=== PATIENT | female | born 1930 | race Caucasian/White ===

== ENCOUNTER 2016-03-28 10:38 | Emergency (ER) | payer MEDICARE, OTHER ==
[2016-03-28] MEDS ORDERED: DIPH,PERTUSS(ACELL),TET VAC/PF 0.5 ML DISP.SYRIN IM ONE (10:44)
--- NOTE | 2016-03-28 11:01 | ED Physician Documentation ---
Facial/Scalp Injury - HISTORIAN Historian: patient - HPI Stated Complaint: ran into wall Chief Complaint: Facial Injury Additional Information: no loc, no vertigo, no syncope Onset: just prior to arrival Where: home Timing: still present Context: fall Severity: moderate Further Comments: no - ROS CONST: no problems CVS/RESP: none EYES/ENT: none GI/: none NEURO/PSYCH: denies: fainting, dizziness, tingling, numbness, anxiety, depression MS/SKIN/LYMPH: none - PAST HX Past History: other (hypothyroidis, gout, gerd) Immunizations: tetanus Medications: see nurse note Allergies: see nurses note - SOCIAL HX Smoking History: non-smoker Alcohol Use: none Drug Use: none - FAMILY HX Family History: No - VITAL SIGNS Vital Signs: Vital Signs Temp Pulse Resp BP Pulse Ox 112/60 04/01/14 18:00 - REVIEWED ASSESSMENT Nursing Assessment Reviewed: Yes Vitals Reviewed: Yes Procedures Wound Location: face Wound Length: 1/2 cm x 2 Wound's Depth, Shape: superficial, linear Wound Explored: clean Betadine Prep?: No (sureclens) Wound Repaired With: Dermabond Sterile Dressing Applied?: No Splint Applied?: No Sling Applied?: No Progress - Results/Orders Results/Orders: no testing ordered - Progress Progress: pt. given adacel in er. Critical Care Note - Critical Care Note Total Time (mins): 0 ED Results Lab/Radiology - Lab Results Lab Results: none ordered - Radiology Radiology Impressions: none ordered - Orders Orders: ED Orders Category Date Time Status Skin Adhesive NOW Care 03/28/16 10:45 Ordered Diph,Pertuss(Acell),Tet Vac/Pf [Adacel] Med 03/28/16 10:44 Discontinued 0.5 ml IM .STK-MED ONE Facial Injury Physical Exam - Physical Exam General Appearance: alert, mild distress Head: trauma (bruise infraorbital region, 2 minor laceration right eyebrow area) Neck: non-tender, painless ROM, trachea midline Nexus Criteria: Nexus criteria neg Eye: lids nml, conjunctivae nml, PERRL, EOMI, periorbital hematoma (right) ENT: pharynx nml, no injury to teeth, no injury to gums, other (abrasion upper lip (minor)) Neuro/Psych: oriented x3, CN's nml as tested, sensation nml, motor nml, mood/ affect nml, retort feeder ground bone nml, reflexes nml Respiratory: chest non-tender, no ecchymosis, breath sounds nml, no resp. distress, heart sounds nml CVS: reg. rate & rhythm, heart sounds nml Abdomen: non-tender, no organomegaly Skin: other (1/2 cm minor lacerations x 2 right eyebrow area) Extremities: non-tender Discharge Clincal Impression: Laceration of face Referrals: Jennifer Lee, PRN [Primary Care Provider] - 2 Days Home Medications: Ambulatory Orders Allopurinol [Zyloprim] 300 mg PO D 05/02/13 Antiarthritic Combination No.2 [Glucosamine-Chondroitin] 500 mg PO D 05/02/13 Gabapentin [Neurontin] 300 mg PO TID 05/02/13 Levothyroxine Sodium [Synthroid] 88 mg PO D 05/02/13 Omeprazole [Omeprazole] 20 mg PO D 05/02/13 Opti-Vitamin [Ocuvite Tablet] 1 tab PO D 05/02/13 Raloxifene HCl [Evista] 60 mg PO D 05/02/13 Sitagliptin Phosphate [Januvia] 100 mg PO D 05/02/13 Alprazolam [Alprazolam] 0.25 mg PO TID PRN 03/29/14 Aspirin [Mary] 81 mg PO DAILY 03/29/14 Metformin HCl [Glucophage] 500 mg PO HS 03/29/14 Zolpidem Tartrate [Ambien] 5 mg PO QDAY PRN 03/29/14 Condition: Stable Disposition: 01 HOME, SELF-CARE Decision to Admit: NO Decision Time: 15:00
[2016-03-28 11:16] VITALS: BP 160/66
== END 2016-03-28 11:10 | disposition home or self-care (01) ==
LOC: ED 10:38
DX: S01.81XA Laceration without foreign body of other part of head, initial encounter (principal); W19.XXXA Unspecified fall, initial encounter; Y93.9 Activity, unspecified; Y99.9 Unspecified external cause status
CPT/HCPCS: 12011; 90471; 90715; 99283

== ENCOUNTER 2016-04-24 09:00 | Outpatient (CLI) | payer OTHER | END 2016-04-24 09:10 | LOC: POD 09:00 | PROVIDERS: ATTEND Podiatrist Public Medicine | DX: E11.9 Type 2 diabetes mellitus without complications (principal); B35.1 Tinea unguium; L60.0 Ingrowing nail; M79.674 Pain in right toe(s); M79.675 Pain in left toe(s) | CPT/HCPCS: 11721; G0463 ==

== ENCOUNTER 2016-06-03 14:18 | Inpatient (IN) | payer OTHER ==
--- NOTE | 2016-06-03 18:31 | History and Physical Report ---
History of Present Illnes - History of Present Illness Reason for Visit: distal femur fracture with gait disturbance History of Present Illness: 85yo white female who fell and sustained a distal femur fracture 9 days ago. Underwent emergency stabilization and then underwent ORIF of the fracture. Has not had any intraoperative or postoperative complication. Has been advised that she could put 25% weight bearing to the foot. Patient has a history of DM, has been running high. Last A1c 6.3. History of lymphome in remission. Gerds is stable. - Past Medical History Gastrointestinal: GERD Heme/Onc: Other (lymphoma treated and in remission) Musculoskeletal: Osteoarthritis Endocrine: Diabetes, Hypothyroidism, Other (hyperuricemia) - Past Surgical History Past Surgical History: Appendectomy, Cataract Removal, Hysterectomy, Total Knee Replacement (has had revision), Tonsillectomy - Past Family History Mother Family History: (85yo advanced age) Father Family History: CAD, (72yo) Brother 1 Family History: Cancer (lymphoma), (cancer) Brother 2 Family History: Cancer (colon), Brother 3 Family History: Cancer (brain), Brother 4 Family History: (advanced age) Brother 5 Family History: (2016) - Past Social History Smoke: No Alcohol: None Drugs: None Lives: With Family Domestic Violence: Negative - Health Maintenance Health Maintenance: Mammogram, DEXA (2017) Influenza Vaccine: Current for this Influenza Season, 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 negative: Fever, Chills, Sweats Eyes: negative: pain, vision change ENT: negative: Ear Pain, Ear Discharge, Nose Pain, Nose Discharge, Mouth Pain, Mouth Swelling, Throat Pain, Throat Swelling Respiratory: negative: Cough, Dry, Shortness of Breath, Hemoptysis, SOB with Excertion, Pleuritic Pain, Wheezing Cardiovascular: negative: Chest Pain, Palpitations, Edema, Light Headedness Gastrointestinal: negative: Nausea, Vomiting, Abdominal Pain, Diarrhea, Constipation, Melena, Hematochezia Genitourinary: negative: Dysuria, Frequency, Incontinence, Hematuria Musculoskeletal: Leg Pain. negative: Neck Pain, Shoulder Pain, Arm Pain, Back Pain Skin: negative: Rash, Lesions, Jaundice Neurological: negative: Weakness, Numbness, Confusion, Seizures - Medications/Allergies Allergies/Adverse Reactions: Allergies Allergy/AdvReac Type Severity Reaction Status Date / Time acyclovir Allergy Verified 06/04/16 07:03 amoxicillin [Amoxicillin] Allergy Verified 06/04/16 07:03 brimonidine tartrate Allergy Verified 06/04/16 07:03 [From Combigan] chlorpheniramine maleate Allergy Verified 06/04/16 07:03 [From Deconamine] ciprofloxacin [From Cipro] Allergy Verified 06/04/16 07:03 ciprofloxacin HCl Allergy Verified 06/04/16 07:03 [From Cipro] cyclobenzaprine HCl Allergy Verified 06/04/16 07:03 [From Flexeril] dicyclomine Allergy Verified 06/04/16 07:03 glimepiride [From Amaryl] Allergy Verified 06/04/16 07:03 metoclopramide HCl Allergy Verified 06/04/16 07:03 [From Reglan] Penicillins Allergy Verified 06/04/16 07:03 pregabalin [From Lyrica] Allergy Verified 06/04/16 07:03 prochlorperazine edisylate Allergy Verified 06/04/16 07:03 [From Compazine] prochlorperazine maleate Allergy Verified 06/04/16 07:03 [From Compazine] pseudoephedrine HCl Allergy Verified 06/04/16 07:03 [From Deconamine] thiethylperazine maleate Allergy Verified 06/04/16 07:03 [From Torecan] timolol maleate Allergy Verified 06/04/16 07:03 [From Combigan] Home Medications: Home Medications Allopurinol [Zyloprim] 300 mg PO D 06/04/16 Calcium Carb 500/Vit D 200 [Caltrate with Vit D] 1 each PO TID 06/04/16 Calcium Carb 500Mg [Tums] 1,000 mg PO DAILY PRN 06/04/16 Enoxaparin Sodium [Lovenox] 40 mg SQ QD 06/04/16 Ergocalciferol (Vitamin D2) [Vitamin D2] 50,000 unit PO WEEK 06/04/16 Gabapentin 600 mg PO TID 06/04/16 Levothyroxine Sodium [Levoxyl] 88 mcg PO 0700 06/04/16 Metformin HCl [Glucophage] 1,000 [place] [address] 06/04/16 Mv-Mn/FA/Vit K/Lycop/Lut/Zeaxa [Ocuvite Eye + Multi Tablet] 1 each PO D Omeprazole [Prilosec] 40 mg PO D 06/04/16 Raloxifene HCl 60 mg PO D 06/04/16 Sennosides/Docusate Sodium [Senna-Docusate Sodium Tablet] 2 each PO HS PRN 06/04 oxyCODONE HCL/ACETAMINOPHEN [Percocet 5-325 mg Tablet] 2 each PO Q4 PRN Current Inpatient Medications: Current Inpatient Medications Aspirin (Aspirin) 81 mg PO DAILY [facility] Enoxaparin Sodium (Lovenox) 30 mg SQ QD [place] Stop: 06/16/16 19:01 Gabapentin (Neurontin) 300 mg PO TID [place] Metformin HCl (Glucophage) 500 mg PO HS [facility] Zolpidem Tartrate (Ambien) 5 mg PO QDAY PRN PRN Reason: anxiety Exam - Exam General: Alert, Oriented to Person, Oriented to Place, Oriented to Time, Cooperative, Mild distress HEENT: Atraumatic, PERRLA, EOMI, Mouth Mucous membr. moist/[place], Nose Mucous membr. moist/[place], Dentition Normal. No: Decreased Hearing Acuity Neck: Normal Range of Motion Carotids: WNL Thyroid: WNL Lungs: Clear to auscultation, Normal air movement, Speaks full Sentences Cardiovascular: Regular rate, Normal S1, Normal S2, No murmurs Abdomen: Normal bowel sounds, Soft, No tenderness, No hepatospenomegaly, No masses Integumentary: Normal, [place], Warm, Dry Extremities: No clubbing, No cyanosis, No edema, Normal pulses, No tenderness/ swelling, Other (well healing surgical wounds to the right leg. Mild to moderate swelling noted.) Neurological: Normal gait, Normal speech, Strength Equal Bilat, Normal tone, Sensation intact, Cranial nerves 3-12 NL, Reflexes 2+ Psych/Mental Status: Mental status NL, Mood NL, Appropriate Affect, Intact Judgment Assessment/Plan - Assessment/Plan (1) Fracture, femur, distal, open Status: Acute Current Visit: Yes Qualifiers: Open fracture type: open type I or II Laterality: right Fracture healing : with routine healing Assessment: Patient will be continued with partial weight bearing of 25% with brace, will star OT and PT. (2) Diabetes type 2, controlled Status: Chronic Current Visit: Yes Qualifiers: Diabetes mellitus complication status: without complication Diabetes mellitus usp insulin use: without usp use Qualified Code(s): E11.9 - Type 2 diabetes mellitus without complications Assessment: Continue with home meds, start sliding scale insulin while hospitalized. Monitor blood sugars. (3) Hyperuricemia Status: Chronic Current Visit: Yes Assessment: Will watch for signs of gout, continue allopurinal VTE Assessment - RISK FACTOR SCORE VTE RISK FACTOR SCORES: AGE OVER 60 YEARS, ANTICIPATED BED CONFINEMENT OR IMMOBILIZATION > 24 HOURS - RISK VTE MODERATE RISK: SCORE OF 2 (RISK PROXIMAL DVT 2-4%) PROPHYAXIS NEEDED
[2016-06-03] MEDS: ENOXAPARIN SODIUM 30 MG/0.3 ML DISP.SYRIN SQ SCH (20:00)
[2016-06-03 20:40] VITALS: BMI 20.8
[2016-06-03] MEDS: ZOLPIDEM TARTRATE 5 MG TABLET PO PRN (21:39)
[2016-06-03] MEDS: GABAPENTIN 300 MG CAPSULE PO SCH (21:40)
[2016-06-03] MEDS: ALPRAZOLAM 0.5 MG TABLET PO PRN (22:38)
[2016-06-04] MEDS: PANTOPRAZOLE SODIUM 40 MG TABLET PO SCH (06:18)
[2016-06-04] MEDS: LEVOTHYROXINE SODIUM 25 MCG TABLET PO SCH (06:18)
[2016-06-04] MEDS: INSULIN REGULAR, HUMAN 100 UNIT/ML 3ML VIAL SQ SCH ×4 (07:16→20:07)
[2016-06-04] MEDS: GABAPENTIN 300 MG CAPSULE PO SCH ×3 (09:05→17:52)
[2016-06-04] MEDS: MULTIVITAMIN 1 EACH TABLET PO SCH (09:05)
[2016-06-04] MEDS: CALCIUM CARB 500/VIT D 200 1 EACH TABLET PO SCH ×3 (09:05→17:52)
[2016-06-04] MEDS: ASPIRIN 81 MG CHEW TAB PO SCH (09:05)
[2016-06-04] MEDS: ALLOPURINOL 100 MG TABLET PO SCH (09:05)
[2016-06-04] MEDS: ACETAMINOPHEN 500 MG TABLET PO PRN ×2 (14:04→20:09)
[2016-06-04] MEDS: ENOXAPARIN SODIUM 30 MG/0.3 ML DISP.SYRIN SQ SCH (18:23)
[2016-06-04] MEDS: ALPRAZOLAM 0.5 MG TABLET PO PRN (20:57)
[2016-06-04] MEDS: ZOLPIDEM TARTRATE 5 MG TABLET PO PRN (20:58)
[2016-06-05] MEDS ORDERED: GABAPENTIN 100 MG CAPSULE ONE ×2 (03:29→09:43)
[2016-06-05] MEDS: LEVOTHYROXINE SODIUM 25 MCG TABLET PO SCH (06:16)
[2016-06-05] MEDS: PANTOPRAZOLE SODIUM 40 MG TABLET PO SCH (06:16)
[2016-06-05 06:30] LABS: BASOPHILS % 0.5 (0.0-1.5); EOSINOPHILS % 2.4 % (0.0-6.8); MEAN CORPUSCULAR HEMOGLOBIN 29.8 pg (28.0-34.0); MEAN CORPUSCULAR VOLUME 97.3 fl (80.0-100.0); MONOCYTES % 4.8 % (0.0-11.0)
[2016-06-05 06:47] LABS: eGFR (African) > 60; eGFR (Non-African) > 60
--- NOTE | 2016-06-05 07:38 | Inpatient Progress Note ---
Subjective - Required Recertification Statement I anticipate X number of days because-include discharge plan: 14 - Review of Systems Events since last encounter: Patient states that she is doing well. Is having little pain at this time. Does complain of some neuropathy pain, usually takes gabapentin 600mg TID. BM have been ok. Therapy is going well. Feels weak all over. BS have been running high. Objective - Exam Vitals and I&O: Vital Signs Temp 97.0 F L 06/04/16 20:44 Pulse 94 H 06/04/16 20:44 Resp 22 06/04/16 20:44 BP 104/59 06/04/16 20:44 Pulse Ox 98 06/04/16 20:44 Intake & Output 06/04/16 06/04/16 06/05/16 11:59 23:59 11:59 Intake Total 360 120 Balance 360 120 Intake: Oral 360 120 Other: Voiding Method Bedside Commode Bedside Commode # Voids 2 4 2 # Bowel Movements 1 General: Alert, Oriented to Person, Oriented to Place, Oriented to Time, Cooperative Neck: Supple Lungs: Clear to auscultation, Normal air movement, Speaks full Sentences Cardiovascular: Regular rate, Normal S1, Normal S2, No murmurs Skin: Normal, [place], Warm Psych/Mental Status: Mood NL, Intact Judgment - Results Results: Laboratory Results WBC 6.10 K/ul (4.00-12.00) 06/05/16 06:20 RBC 3.31 M/ul (3.90-5.20) L 06/05/16 06:20 Hgb 9.9 g/dL (12.0-16.0) L 06/05/16 06:20 Hct 32.2 % (34.5-46.5) L 06/05/16 06:20 MCV 97.3 fl (80.0-100.0) 06/05/16 06:20 MCH 29.8 pg (28.0-34.0) 06/05/16 06:20 MCHC 30.7 g/dL (30.0-36.0) 06/05/16 06:20 RDW 15.9 % (11.3-14.3) H 06/05/16 06:20 Plt Count 358 K/mm3 (130-400) 06/05/16 06:20 Neut % (Auto) 64.9 % (39.0-79.0) 06/05/16 06:20 Lymph % (Auto) 25.8 % (16.0-50.0) 06/05/16 06:20 [place] % (Auto) 4.8 % (0.0-11.0) 06/05/16 06:20 Eos % (Auto) 2.4 % (0.0-6.8) 06/05/16 06:20 Baso % (Auto) 0.5 (0.0-1.5) 06/05/16 06:20 Neut # 4.0 # k/uL (1.4-7.7) 06/05/16 06:20 Lymph # 1.6 # k/uL (0.6-4.0) 06/05/16 06:20 [place] # 0.3 # k/uL (0.0-0.9) 06/05/16 06:20 Eos # 0.1 # k/uL (0.0-0.6) 06/05/16 06:20 Baso # 0.0 # k/uL (0.0-0.5) 06/05/16 06:20 Reactive Lymphs % 1.7 % (0.0-5.0) 06/05/16 06:20 Reactive Lymphs # 0.1 # k/uL (0.0-0.8) 06/05/16 06:20 Sodium 138 mmol/L (136-145) 06/05/16 06:20 Potassium 4.0 mmol/L (3.5-5.0) 06/05/16 06:20 Chloride 108 mmol/L (98-110) 06/05/16 06:20 Carbon Dioxide 28 mmol/L (20-32) 06/05/16 06:20 BUN 14 mg/dL (10-26) 06/05/16 06:20 Creatinine 0.7 mg/dL (0.4-1.5) 06/05/16 06:20 Estimated Creat Clear 61 06/05/16 06:20 Est GFR ( Amer) > 60 (60-) 06/05/16 06:20 Est GFR (Non-Af Amer) > 60 (60-) 06/05/16 06:20 Glucose 203 mg/dL (70-99) H 06/05/16 06:20 Calcium 9.3 mg/dL (8.5-10.5) 06/05/16 06:20 Total Bilirubin 0.4 mg/dL (0.2-1.2) 06/05/16 06:20 AST 15 U/L (0-41) 06/05/16 06:20 ALT 8 U/L (0-45) 06/05/16 06:20 Alkaline Phosphatase 78 U/L (46-116) 06/05/16 06:20 Total Protein 5.9 g/dL (6.0-8.5) L 06/05/16 06:20 Albumin 3.4 g/dL (3.0-5.5) 06/05/16 06:20 Assessment/Plan - Assessment/Plan (1) Fracture, femur, distal, open Status: Acute Current Visit: Yes Qualifiers: Open fracture type: open type I or II Laterality: right Fracture healing : with routine healing Assessment: wound looks good Plan: continue with Pt and OT, and leg brace (2) Diabetes type 2, controlled Status: Chronic Current Visit: Yes Qualifiers: Diabetes mellitus complication status: without complication Diabetes mellitus director long term care insulin use: without director long term care use Qualified Code(s): E11.9 - Type 2 diabetes mellitus without complications Assessment: BS are still running some higher then at home Plan: Will increase metformin to 500mg BID
[2016-06-05] MEDS: ASPIRIN 81 MG CHEW TAB PO SCH (09:36)
[2016-06-05] MEDS: CALCIUM CARB 500/VIT D 200 1 EACH TABLET PO SCH ×3 (09:36→17:13)
[2016-06-05] MEDS: MULTIVITAMIN 1 EACH TABLET PO SCH (09:37)
[2016-06-05] MEDS: GABAPENTIN 300 MG CAPSULE PO SCH ×3 (09:47→17:13)
[2016-06-05] MEDS: ALLOPURINOL 100 MG TABLET PO SCH (09:49)
[2016-06-05] MEDS: INSULIN REGULAR, HUMAN 100 UNIT/ML 3ML VIAL SQ SCH ×2 (11:40→17:14)
[2016-06-05] MEDS: ACETAMINOPHEN 500 MG TABLET PO PRN (12:38)
[2016-06-05] MEDS: ENOXAPARIN SODIUM 30 MG/0.3 ML DISP.SYRIN SQ SCH (19:02)
[2016-06-05] MEDS: ALPRAZOLAM 0.5 MG TABLET PO PRN (20:33)
[2016-06-05] MEDS: ZOLPIDEM TARTRATE 5 MG TABLET PO PRN (20:33)
[2016-06-06] MEDS: PANTOPRAZOLE SODIUM 40 MG TABLET PO SCH (05:34)
[2016-06-06] MEDS: LEVOTHYROXINE SODIUM 25 MCG TABLET PO SCH (05:35)
[2016-06-06] MEDS: INSULIN REGULAR, HUMAN 100 UNIT/ML 3ML VIAL SQ SCH ×3 (07:21→16:53)
[2016-06-06] MEDS: ASPIRIN 81 MG CHEW TAB PO SCH (08:56)
[2016-06-06] MEDS: CALCIUM CARB 500/VIT D 200 1 EACH TABLET PO SCH ×3 (08:56→17:01)
[2016-06-06] MEDS: GABAPENTIN 300 MG CAPSULE PO SCH ×3 (09:00→17:01)
[2016-06-06] MEDS: ALLOPURINOL 100 MG TABLET PO SCH (09:02)
[2016-06-06] MEDS: MULTIVITAMIN 1 EACH TABLET PO SCH (09:02)
[2016-06-06] MEDS: ENOXAPARIN SODIUM 30 MG/0.3 ML DISP.SYRIN SQ SCH (18:42)
[2016-06-06] MEDS: ZOLPIDEM TARTRATE 5 MG TABLET PO PRN (21:57)
[2016-06-06] MEDS: ALPRAZOLAM 0.5 MG TABLET PO PRN (21:57)
[2016-06-07] MEDS: LEVOTHYROXINE SODIUM 25 MCG TABLET PO SCH (06:08)
[2016-06-07] MEDS: PANTOPRAZOLE SODIUM 40 MG TABLET PO SCH (06:08)
[2016-06-07] MEDS: ASPIRIN 81 MG CHEW TAB PO SCH (08:08)
[2016-06-07] MEDS: CALCIUM CARB 500/VIT D 200 1 EACH TABLET PO SCH ×3 (08:08→17:42)
[2016-06-07] MEDS: GABAPENTIN 300 MG CAPSULE PO SCH ×3 (08:08→17:42)
[2016-06-07] MEDS: MULTIVITAMIN 1 EACH TABLET PO SCH (08:09)
[2016-06-07] MEDS: ALLOPURINOL 100 MG TABLET PO SCH (08:09)
[2016-06-07] MEDS: INSULIN REGULAR, HUMAN 100 UNIT/ML 3ML VIAL SQ SCH ×3 (08:12→17:42)
[2016-06-07] MEDS: DOCUSATE SODIUM 100 MG CAPSULE PO SCH (10:37)
[2016-06-07] MEDS: ACETAMINOPHEN 500 MG TABLET PO PRN ×2 (14:22→21:07)
[2016-06-07] MEDS: ENOXAPARIN SODIUM 30 MG/0.3 ML DISP.SYRIN SQ SCH (17:42)
[2016-06-07] MEDS: ALPRAZOLAM 0.5 MG TABLET PO PRN (21:09)
[2016-06-07] MEDS: ZOLPIDEM TARTRATE 5 MG TABLET PO PRN (21:10)
[2016-06-08] MEDS: PANTOPRAZOLE SODIUM 40 MG TABLET PO SCH (06:24)
[2016-06-08] MEDS: LEVOTHYROXINE SODIUM 25 MCG TABLET PO SCH (06:25)
[2016-06-08] MEDS: INSULIN REGULAR, HUMAN 100 UNIT/ML 3ML VIAL SQ SCH ×3 (07:20→16:50)
[2016-06-08] MEDS: DOCUSATE SODIUM 100 MG CAPSULE PO SCH (08:56)
[2016-06-08] MEDS: CALCIUM CARB 500/VIT D 200 1 EACH TABLET PO SCH ×3 (08:56→18:03)
[2016-06-08] MEDS: ASPIRIN 81 MG CHEW TAB PO SCH (08:56)
[2016-06-08] MEDS: GABAPENTIN 300 MG CAPSULE PO SCH ×3 (08:57→18:03)
[2016-06-08] MEDS: ALLOPURINOL 100 MG TABLET PO SCH (08:58)
[2016-06-08] MEDS: MULTIVITAMIN 1 EACH TABLET PO SCH (08:58)
[2016-06-08] MEDS: ENOXAPARIN SODIUM 30 MG/0.3 ML DISP.SYRIN SQ SCH (18:03)
[2016-06-08] MEDS: ACETAMINOPHEN 500 MG TABLET PO PRN (20:53)
[2016-06-08] MEDS: ALPRAZOLAM 0.5 MG TABLET PO PRN (20:53)
[2016-06-08] MEDS: ZOLPIDEM TARTRATE 5 MG TABLET PO PRN (20:53)
[2016-06-09] MEDS: LEVOTHYROXINE SODIUM 25 MCG TABLET PO SCH (06:37)
[2016-06-09] MEDS: PANTOPRAZOLE SODIUM 40 MG TABLET PO SCH (06:37)
[2016-06-09] MEDS: CALCIUM CARB 500 MG TAB.CHEW PO PRN ×2 (06:39→19:05)
[2016-06-09] MEDS: INSULIN REGULAR, HUMAN 100 UNIT/ML 3ML VIAL SQ SCH ×3 (07:46→17:15)
[2016-06-09] MEDS: ASPIRIN 81 MG CHEW TAB PO SCH (08:47)
[2016-06-09] MEDS: ALLOPURINOL 100 MG TABLET PO SCH (08:48)
[2016-06-09] MEDS: CALCIUM CARB 500/VIT D 200 1 EACH TABLET PO SCH ×3 (08:48→18:10)
[2016-06-09] MEDS: DOCUSATE SODIUM 100 MG CAPSULE PO SCH (08:48)
[2016-06-09] MEDS: MULTIVITAMIN 1 EACH TABLET PO SCH (08:48)
[2016-06-09] MEDS: GABAPENTIN 300 MG CAPSULE PO SCH ×3 (08:48→18:10)
[2016-06-09] MEDS: ENOXAPARIN SODIUM 30 MG/0.3 ML DISP.SYRIN SQ SCH (18:10)
[2016-06-09] MEDS: ZOLPIDEM TARTRATE 5 MG TABLET PO PRN (20:20)
[2016-06-09] MEDS: ALPRAZOLAM 0.5 MG TABLET PO PRN (20:20)
[2016-06-10] MEDS: LEVOTHYROXINE SODIUM 25 MCG TABLET PO SCH (06:21)
[2016-06-10] MEDS: PANTOPRAZOLE SODIUM 40 MG TABLET PO SCH (06:21)
[2016-06-10] MEDS: ACETAMINOPHEN 500 MG TABLET PO PRN ×2 (06:22→12:43)
[2016-06-10] MEDS: DOCUSATE SODIUM 100 MG CAPSULE PO SCH (09:26)
[2016-06-10] MEDS: ASPIRIN 81 MG CHEW TAB PO SCH (09:26)
[2016-06-10] MEDS: INSULIN REGULAR, HUMAN 100 UNIT/ML 3ML VIAL SQ SCH ×3 (09:26→18:29)
[2016-06-10] MEDS: CALCIUM CARB 500/VIT D 200 1 EACH TABLET PO SCH ×3 (09:26→18:31)
[2016-06-10] MEDS: GABAPENTIN 300 MG CAPSULE PO SCH ×3 (09:27→18:32)
[2016-06-10] MEDS: MULTIVITAMIN 1 EACH TABLET PO SCH (09:27)
[2016-06-10] MEDS: ALLOPURINOL 100 MG TABLET PO SCH (09:27)
[2016-06-10] MEDS: POLYETHYLENE GLYCOL 3350 17 GM POWD.PACK PO SCH (11:32)
[2016-06-10] MEDS ORDERED: POLYETHYLENE GLYCOL 3350 17 GM POWD.PACK PO ONE (13:10)
[2016-06-10] MEDS: ERGOCALCIFEROL (VITAMIN D2) 50,000 UNIT CAPSULE PO SCH (18:29)
[2016-06-10] MEDS: ENOXAPARIN SODIUM 30 MG/0.3 ML DISP.SYRIN SQ SCH (18:32)
[2016-06-10] MEDS: ALPRAZOLAM 0.5 MG TABLET PO PRN (21:08)
[2016-06-10] MEDS: ZOLPIDEM TARTRATE 5 MG TABLET PO PRN (21:09)
[2016-06-11] MEDS: PANTOPRAZOLE SODIUM 40 MG TABLET PO SCH (05:35)
[2016-06-11] MEDS: LEVOTHYROXINE SODIUM 25 MCG TABLET PO SCH (05:35)
[2016-06-11] MEDS: GABAPENTIN 300 MG CAPSULE PO SCH ×3 (08:03→17:31)
[2016-06-11] MEDS: INSULIN REGULAR, HUMAN 100 UNIT/ML 3ML VIAL SQ SCH ×3 (08:03→17:31)
[2016-06-11] MEDS: ALLOPURINOL 100 MG TABLET PO SCH (08:03)
[2016-06-11] MEDS: ASPIRIN 81 MG CHEW TAB PO SCH (08:04)
[2016-06-11] MEDS: DOCUSATE SODIUM 100 MG CAPSULE PO SCH (08:04)
[2016-06-11] MEDS: CALCIUM CARB 500/VIT D 200 1 EACH TABLET PO SCH ×3 (08:04→17:31)
[2016-06-11] MEDS: MULTIVITAMIN 1 EACH TABLET PO SCH (08:04)
[2016-06-11] MEDS: POLYETHYLENE GLYCOL 3350 17 GM POWD.PACK PO SCH (10:58)
[2016-06-11] MEDS: ACETAMINOPHEN 500 MG TABLET PO PRN (17:31)
[2016-06-11] MEDS: ENOXAPARIN SODIUM 30 MG/0.3 ML DISP.SYRIN SQ SCH (17:32)
[2016-06-11] MEDS: ZOLPIDEM TARTRATE 5 MG TABLET PO PRN (20:52)
[2016-06-12] MEDS: LEVOTHYROXINE SODIUM 25 MCG TABLET PO SCH (05:58)
[2016-06-12] MEDS: PANTOPRAZOLE SODIUM 40 MG TABLET PO SCH (05:59)
[2016-06-12] MEDS: INSULIN REGULAR, HUMAN 100 UNIT/ML 3ML VIAL SQ SCH ×3 (07:33→16:37)
[2016-06-12] MEDS: CALCIUM CARB 500/VIT D 200 1 EACH TABLET PO SCH ×3 (08:40→18:03)
[2016-06-12] MEDS: ASPIRIN 81 MG CHEW TAB PO SCH (08:40)
[2016-06-12] MEDS: MULTIVITAMIN 1 EACH TABLET PO SCH (08:41)
[2016-06-12] MEDS: ALLOPURINOL 100 MG TABLET PO SCH (08:41)
[2016-06-12] MEDS: DOCUSATE SODIUM 100 MG CAPSULE PO SCH (08:41)
[2016-06-12] MEDS: GABAPENTIN 300 MG CAPSULE PO SCH ×3 (08:41→18:03)
[2016-06-12] MEDS: POLYETHYLENE GLYCOL 3350 17 GM POWD.PACK PO SCH (11:38)
[2016-06-12] MEDS: ACETAMINOPHEN 500 MG TABLET PO PRN (13:43)
[2016-06-12] MEDS ORDERED: SALINE FLUSH 10 ML DISP.SYRIN IVF ONE (15:57)
[2016-06-12] MEDS ORDERED: HEPARIN SODIUM 500 UNIT/5 ML DISP.SYRIN IV ONE ×2 (15:58→17:00)
[2016-06-12] MEDS ORDERED: SALINE FLUSH 10 ML DISP.SYRIN IV ONE (17:00)
[2016-06-12] MEDS: ENOXAPARIN SODIUM 30 MG/0.3 ML DISP.SYRIN SQ SCH (18:04)
--- NOTE | 2016-06-12 20:05 | Inpatient Progress Note ---
Subjective - Required Recertification Statement I anticipate X number of days because-include discharge plan: 7 days - Review of Systems Events since last encounter: Rmoel seems to be doing well. Is participating in PT and OT well. BM have been normal. Appeitie has been good. DM BS have been in the 300s at times. Objective - Exam Vitals and I&O: Vital Signs Temp 98.7 F 06/12/16 09:00 Pulse 107 H 06/12/16 09:00 Resp 18 06/12/16 09:00 BP 118/55 06/12/16 09:00 Pulse Ox 95 06/12/16 09:00 Intake & Output 06/11/16 06/12/16 06/12/16 23:59 11:59 23:59 Intake Total 380 240 840 Balance 380 240 840 Intake: Oral 380 240 840 Other: Voiding Method Toilet Toilet # Voids 2 # Bowel Movements 0 General: Alert, Oriented to Person, Oriented to Place, Oriented to Time, Cooperative Lungs: Clear to auscultation, Normal air movement. No: Wheezes, Rales, Rhonchi Cardiovascular: Regular rate, Normal S1, Normal S2, No murmurs Abdomen: Normal bowel sounds, Soft, No tenderness Extremities: Other (LLE- incision appers ot be healing well, will have sutures removed. Having some swelling tot he joint area.) Skin: Warm, Dry - Results Results: Laboratory Results WBC 6.10 K/ul (4.00-12.00) 06/05/16 06:20 RBC 3.31 M/ul (3.90-5.20) L 06/05/16 06:20 Hgb 9.9 g/dL (12.0-16.0) L 06/05/16 06:20 Hct 32.2 % (34.5-46.5) L 06/05/16 06:20 MCV 97.3 fl (80.0-100.0) 06/05/16 06:20 MCH 29.8 pg (28.0-34.0) 06/05/16 06:20 MCHC 30.7 g/dL (30.0-36.0) 06/05/16 06:20 RDW 15.9 % (11.3-14.3) H 06/05/16 06:20 Plt Count 358 K/mm3 (130-400) 06/05/16 06:20 Neut % (Auto) 64.9 % (39.0-79.0) 06/05/16 06:20 Lymph % (Auto) 25.8 % (16.0-50.0) 06/05/16 06:20 [place] % (Auto) 4.8 % (0.0-11.0) 06/05/16 06:20 Eos % (Auto) 2.4 % (0.0-6.8) 06/05/16 06:20 Baso % (Auto) 0.5 (0.0-1.5) 06/05/16 06:20 Neut # 4.0 # k/uL (1.4-7.7) 06/05/16 06:20 Lymph # 1.6 # k/uL (0.6-4.0) 06/05/16 06:20 [place] # 0.3 # k/uL (0.0-0.9) 06/05/16 06:20 Eos # 0.1 # k/uL (0.0-0.6) 06/05/16 06:20 Baso # 0.0 # k/uL (0.0-0.5) 06/05/16 06:20 Reactive Lymphs % 1.7 % (0.0-5.0) 06/05/16 06:20 Reactive Lymphs # 0.1 # k/uL (0.0-0.8) 06/05/16 06:20 Sodium 138 mmol/L (136-145) 06/05/16 06:20 Potassium 4.0 mmol/L (3.5-5.0) 06/05/16 06:20 Chloride 108 mmol/L (98-110) 06/05/16 06:20 Carbon Dioxide 28 mmol/L (20-32) 06/05/16 06:20 BUN 14 mg/dL (10-26) 06/05/16 06:20 Creatinine 0.7 mg/dL (0.4-1.5) 06/05/16 06:20 Estimated Creat Clear 61 06/05/16 06:20 Est GFR ( Amer) > 60 (60-) 06/05/16 06:20 Est GFR (Non-Af Amer) > 60 (60-) 06/05/16 06:20 Glucose 203 mg/dL (70-99) H 06/05/16 06:20 Estimat Average Glucose 143 mg/dL 06/06/16 08:05 Hemoglobin A1c 6.6 % (4.0-5.6) H 06/06/16 08:05 Calcium 9.3 mg/dL (8.5-10.5) 06/05/16 06:20 Total Bilirubin 0.4 mg/dL (0.2-1.2) 06/05/16 06:20 AST 15 U/L (0-41) 06/05/16 06:20 ALT 8 U/L (0-45) 06/05/16 06:20 Alkaline Phosphatase 78 U/L (46-116) 06/05/16 06:20 Total Protein 5.9 g/dL (6.0-8.5) L 06/05/16 06:20 Albumin 3.4 g/dL (3.0-5.5) 06/05/16 06:20 Assessment/Plan - Assessment/Plan (1) Fracture, femur, distal, open Status: Acute Current Visit: Yes Qualifiers: Open fracture type: open type I or II Laterality: right Fracture healing : with routine healing Assessment: continue with present care and treatment (2) Diabetes type 2, controlled Status: Chronic Current Visit: Yes Qualifiers: Diabetes mellitus complication status: without complication Diabetes mellitus shelter insulin use: without shelter use Qualified Code(s): E11.9 - Type 2 diabetes mellitus without complications Assessment: stable, continue with present treatment Plan: Patient usually just take metformin at home. Will monitor, may need to dend home on some long acting insulin or additional meds
[2016-06-12] MEDS: ZOLPIDEM TARTRATE 5 MG TABLET PO PRN (21:11)
[2016-06-13] MEDS: LEVOTHYROXINE SODIUM 25 MCG TABLET PO SCH (05:50)
[2016-06-13] MEDS: PANTOPRAZOLE SODIUM 40 MG TABLET PO SCH (05:50)
[2016-06-13] MEDS: INSULIN REGULAR, HUMAN 100 UNIT/ML 3ML VIAL SQ SCH ×3 (07:24→16:42)
[2016-06-13] MEDS: CALCIUM CARB 500/VIT D 200 1 EACH TABLET PO SCH ×3 (09:03→18:11)
[2016-06-13] MEDS: GABAPENTIN 300 MG CAPSULE PO SCH ×3 (09:04→18:12)
[2016-06-13] MEDS: DOCUSATE SODIUM 100 MG CAPSULE PO SCH (09:08)
[2016-06-13] MEDS: ASPIRIN 81 MG CHEW TAB PO SCH (09:08)
[2016-06-13] MEDS: MULTIVITAMIN 1 EACH TABLET PO SCH (09:08)
[2016-06-13] MEDS: ALLOPURINOL 100 MG TABLET PO SCH (09:08)
[2016-06-13] MEDS: POLYETHYLENE GLYCOL 3350 17 GM POWD.PACK PO SCH (10:44)
[2016-06-13] MEDS: ENOXAPARIN SODIUM 30 MG/0.3 ML DISP.SYRIN SQ SCH (18:12)
[2016-06-13] MEDS: ALPRAZOLAM 0.5 MG TABLET PO PRN (21:34)
[2016-06-13] MEDS: ZOLPIDEM TARTRATE 5 MG TABLET PO PRN (21:34)
[2016-06-14] MEDS: LEVOTHYROXINE SODIUM 25 MCG TABLET PO SCH (06:30)
[2016-06-14] MEDS: PANTOPRAZOLE SODIUM 40 MG TABLET PO SCH (06:30)
[2016-06-14] MEDS: INSULIN REGULAR, HUMAN 100 UNIT/ML 3ML VIAL SQ SCH ×3 (07:32→18:01)
[2016-06-14] MEDS: DOCUSATE SODIUM 100 MG CAPSULE PO SCH (08:19)
[2016-06-14] MEDS: CALCIUM CARB 500/VIT D 200 1 EACH TABLET PO SCH ×3 (08:19→18:02)
[2016-06-14] MEDS: ASPIRIN 81 MG CHEW TAB PO SCH (08:19)
[2016-06-14] MEDS: GABAPENTIN 300 MG CAPSULE PO SCH ×3 (08:19→18:01)
[2016-06-14] MEDS: ALLOPURINOL 100 MG TABLET PO SCH (08:20)
[2016-06-14] MEDS: MULTIVITAMIN 1 EACH TABLET PO SCH (08:20)
[2016-06-14] MEDS: POLYETHYLENE GLYCOL 3350 17 GM POWD.PACK PO SCH (12:54)
[2016-06-14] MEDS: ENOXAPARIN SODIUM 30 MG/0.3 ML DISP.SYRIN SQ SCH (18:02)
[2016-06-14] MEDS: ACETAMINOPHEN 500 MG TABLET PO PRN (20:20)
[2016-06-14] MEDS: ZOLPIDEM TARTRATE 5 MG TABLET PO PRN (21:29)
[2016-06-14] MEDS: ALPRAZOLAM 0.5 MG TABLET PO PRN (21:29)
[2016-06-15] MEDS: LEVOTHYROXINE SODIUM 25 MCG TABLET PO SCH (06:16)
[2016-06-15] MEDS: PANTOPRAZOLE SODIUM 40 MG TABLET PO SCH (06:16)
[2016-06-15] MEDS: ACETAMINOPHEN 500 MG TABLET PO PRN ×3 (07:21→20:02)
[2016-06-15] MEDS: INSULIN REGULAR, HUMAN 100 UNIT/ML 3ML VIAL SQ SCH ×3 (07:42→16:46)
[2016-06-15] MEDS: ASPIRIN 81 MG CHEW TAB PO SCH (08:53)
[2016-06-15] MEDS: DOCUSATE SODIUM 100 MG CAPSULE PO SCH (08:54)
[2016-06-15] MEDS: ALLOPURINOL 100 MG TABLET PO SCH (08:54)
[2016-06-15] MEDS: GABAPENTIN 300 MG CAPSULE PO SCH ×3 (08:54→18:14)
[2016-06-15] MEDS: CALCIUM CARB 500/VIT D 200 1 EACH TABLET PO SCH ×3 (08:54→18:14)
[2016-06-15] MEDS: MULTIVITAMIN 1 EACH TABLET PO SCH (08:54)
[2016-06-15] MEDS: POLYETHYLENE GLYCOL 3350 17 GM POWD.PACK PO SCH (11:06)
--- NOTE | 2016-06-15 11:11 | Diagnostic Imaging Report ---
[facility] [address] [facility].[address] [address] Report Submission Date: Jun 15, 2016 11:02:32 AM CDT Patient Study Name: MELVA URIAS Date: Jun 15, 2016 9:47:46 AM CDT Modality Type: CR Gender: F Description: SPINE : 32 Institution: [facility] Physician: [facility] Thoracic spine 3 views History: Back pain after fall 1 week ago Findings: A superior vena cava catheter is present. Lumbar fusion hardware is partially visualized. T11/T12 degenerative disc disease is observed. There is no fracture, focal bone lesion, or paraspinal swelling. Impression: T11/12 degenerative disc disease without fracture. Electronically signed on Jun 15, 2016 11:02:32 AM CDT by: Claude ZHENG
--- NOTE | 2016-06-15 11:12 | Diagnostic Imaging Report ---
[facility] [address] [facility].[address] [address] Report Submission Date: Jun 15, 2016 11:00:41 AM CDT Patient Study Name: MELVA URIAS Date: Jun 15, 2016 9:43:54 AM CDT Modality Type: CR Gender: F Description: CHEST : 32 Institution: [facility] Physician: [facility] Left rib series History: Pain after fall Findings: A superior vena cava catheter is present. Lumbar fusion hardware is partially visualized. The left ribs are unremarkable without displaced fracture or focal rib lesion. Impression: Unremarkable left ribs. Electronically signed on Jun 15, 2016 11:00:41 AM CDT by: Claude ZHENG
[2016-06-15] MEDS: ENOXAPARIN SODIUM 30 MG/0.3 ML DISP.SYRIN SQ SCH (18:14)
[2016-06-15] MEDS: ALPRAZOLAM 0.5 MG TABLET PO PRN (21:12)
[2016-06-16] MEDS: PANTOPRAZOLE SODIUM 40 MG TABLET PO SCH (05:50)
[2016-06-16] MEDS: LEVOTHYROXINE SODIUM 25 MCG TABLET PO SCH (05:50)
[2016-06-16] MEDS: INSULIN REGULAR, HUMAN 100 UNIT/ML 3ML VIAL SQ SCH ×3 (07:17→16:58)
[2016-06-16] MEDS: CALCIUM CARB 500/VIT D 200 1 EACH TABLET PO SCH ×3 (08:50→18:03)
[2016-06-16] MEDS: DOCUSATE SODIUM 100 MG CAPSULE PO SCH (08:50)
[2016-06-16] MEDS: ASPIRIN 81 MG CHEW TAB PO SCH (08:50)
[2016-06-16] MEDS: GABAPENTIN 300 MG CAPSULE PO SCH ×3 (08:51→18:03)
[2016-06-16] MEDS: MULTIVITAMIN 1 EACH TABLET PO SCH (08:51)
[2016-06-16] MEDS: ACETAMINOPHEN 500 MG TABLET PO PRN ×2 (08:52→18:05)
[2016-06-16] MEDS: ALLOPURINOL 100 MG TABLET PO SCH (08:52)
[2016-06-16] MEDS: POLYETHYLENE GLYCOL 3350 17 GM POWD.PACK PO SCH (11:57)
[2016-06-16] MEDS: ENOXAPARIN SODIUM 30 MG/0.3 ML DISP.SYRIN SQ SCH (18:05)
[2016-06-16] MEDS: ALPRAZOLAM 0.5 MG TABLET PO PRN (20:37)
[2016-06-16] MEDS: ZOLPIDEM TARTRATE 5 MG TABLET PO PRN (20:37)
[2016-06-17] MEDS: LEVOTHYROXINE SODIUM 25 MCG TABLET PO SCH (06:06)
[2016-06-17] MEDS: PANTOPRAZOLE SODIUM 40 MG TABLET PO SCH (06:06)
[2016-06-17] MEDS: INSULIN REGULAR, HUMAN 100 UNIT/ML 3ML VIAL SQ SCH ×3 (08:19→16:57)
[2016-06-17] MEDS: GABAPENTIN 300 MG CAPSULE PO SCH ×3 (08:19→18:19)
[2016-06-17] MEDS: ASPIRIN 81 MG CHEW TAB PO SCH (08:19)
[2016-06-17] MEDS: DOCUSATE SODIUM 100 MG CAPSULE PO SCH (08:20)
[2016-06-17] MEDS: MULTIVITAMIN 1 EACH TABLET PO SCH (08:20)
[2016-06-17] MEDS: CALCIUM CARB 500/VIT D 200 1 EACH TABLET PO SCH ×3 (08:20→18:19)
[2016-06-17] MEDS: ALLOPURINOL 100 MG TABLET PO SCH (08:21)
[2016-06-17] MEDS: ACETAMINOPHEN 500 MG TABLET PO PRN ×2 (08:21→18:20)
[2016-06-17] MEDS: POLYETHYLENE GLYCOL 3350 17 GM POWD.PACK PO SCH (12:23)
[2016-06-17] MEDS: ERGOCALCIFEROL (VITAMIN D2) 50,000 UNIT CAPSULE PO SCH (12:24)
[2016-06-17] MEDS: ZOLPIDEM TARTRATE 5 MG TABLET PO PRN (21:18)
[2016-06-17] MEDS: ALPRAZOLAM 0.5 MG TABLET PO PRN (21:19)
[2016-06-18] MEDS: LEVOTHYROXINE SODIUM 25 MCG TABLET PO SCH (06:35)
[2016-06-18] MEDS: PANTOPRAZOLE SODIUM 40 MG TABLET PO SCH (06:35)
[2016-06-18] MEDS: ACETAMINOPHEN 500 MG TABLET PO PRN (06:38)
[2016-06-18] MEDS: INSULIN REGULAR, HUMAN 100 UNIT/ML 3ML VIAL SQ SCH ×3 (08:05→17:18)
[2016-06-18] MEDS: GABAPENTIN 300 MG CAPSULE PO SCH ×3 (08:06→17:28)
[2016-06-18] MEDS: ASPIRIN 81 MG CHEW TAB PO SCH (08:06)
[2016-06-18] MEDS: DOCUSATE SODIUM 100 MG CAPSULE PO SCH (08:06)
[2016-06-18] MEDS: CALCIUM CARB 500/VIT D 200 1 EACH TABLET PO SCH ×3 (08:06→17:28)
[2016-06-18] MEDS: MULTIVITAMIN 1 EACH TABLET PO SCH (08:06)
[2016-06-18] MEDS: ALLOPURINOL 100 MG TABLET PO SCH (08:06)
[2016-06-18] MEDS: POLYETHYLENE GLYCOL 3350 17 GM POWD.PACK PO SCH (11:13)
[2016-06-18] MEDS ORDERED: ALPRAZOLAM 0.5 MG TABLET PO PRN (21:06)
[2016-06-18] MEDS ORDERED: ZOLPIDEM TARTRATE 5 MG TABLET PO ONE (21:09)
[2016-06-18] MEDS ORDERED: ALPRAZOLAM 0.5 MG TABLET PO ONE (21:09)
[2016-06-18] MEDS ORDERED: ZOLPIDEM TARTRATE 5 MG TABLET PO PRN (21:12)
[2016-06-19] MEDS: PANTOPRAZOLE SODIUM 40 MG TABLET PO SCH (06:43)
[2016-06-19] MEDS: LEVOTHYROXINE SODIUM 25 MCG TABLET PO SCH (06:43)
[2016-06-19] MEDS: INSULIN REGULAR, HUMAN 100 UNIT/ML 3ML VIAL SQ SCH ×2 (07:38→11:41)
[2016-06-19] MEDS: ASPIRIN 81 MG CHEW TAB PO SCH (08:52)
[2016-06-19] MEDS: GABAPENTIN 300 MG CAPSULE PO SCH ×2 (08:56→13:04)
[2016-06-19] MEDS: MULTIVITAMIN 1 EACH TABLET PO SCH (08:56)
[2016-06-19] MEDS: ALLOPURINOL 100 MG TABLET PO SCH (08:57)
[2016-06-19] MEDS: DOCUSATE SODIUM 100 MG CAPSULE PO SCH (08:59)
[2016-06-19] MEDS: CALCIUM CARB 500/VIT D 200 1 EACH TABLET PO SCH ×2 (08:59→13:03)
[2016-06-19] MEDS: POLYETHYLENE GLYCOL 3350 17 GM POWD.PACK PO SCH (11:23)
--- NOTE | 2016-06-19 13:57 | Discharge Summary ---
Discharge Summary - Discharge Sumary History of Present Illness: 85yo white female who fell and sustained a distal femur fracture 9 days ago. Underwent emergency stabilization and then underwent ORIF of the fracture. Has not had any intraoperative or postoperative complication. Has been advised that she could put 25% weight bearing to the foot. Patient has a history of DM, has been running high. Last A1c 6.3. History of lymphome in remission. Gerds is stable. Home Medications: Ambulatory Orders Medication Instructions Recorded Allopurinol [Zyloprim] 300 mg PO D 06/04/16 Calcium Carb 500/Vit D 200 1 each PO TID 06/04/16 [CALTRATE WITH VIT D] Ergocalciferol (Vitamin D2) 50,000 unit PO WEEK 06/04/16 [Vitamin D-2] Gabapentin 600 mg PO TID 06/04/16 Levothyroxine Sodium [Levoxyl] 88 mcg PO 0700 06/04/16 Metformin HCl [Glucophage] 1,000 [place] [address] 06/04/16 Mv-Mn/FA/Vit K/Lycop/Lut/Zeaxa 1 each PO D 06/04/16 [Ocuvite Eye + Multi Tablet] Omeprazole [Prilosec] 40 mg PO D 06/04/16 Raloxifene HCl 60 mg PO D 06/04/16 Sennosides/Docusate Sodium 2 each PO HS PRN 06/04/16 [Docusate Sodium-Senna Tablet] Aspirin [Mary] 81 mg PO DAILY tab.chew 06/19/16 Polyethylene Glycol 3350 [Miralax] 17 gm PO 1100 PRN #30 powd.pack 06/19/16 Zolpidem Tartrate [Ambien] 5 mg PO HS PRN #20 tablet 06/19/16 Consultations this Visit: Other Procedures this Visit: None Allergies/Adverse Reactions: Allergies Allergy/AdvReac Type Severity Reaction Status Date / Time acyclovir Allergy Verified 06/04/16 07:03 amoxicillin [Amoxicillin] Allergy Verified 06/04/16 07:03 brimonidine tartrate Allergy Verified 06/04/16 07:03 [From Combigan] chlorpheniramine maleate Allergy Verified 06/04/16 07:03 [From Deconamine] ciprofloxacin [From Cipro] Allergy Verified 06/04/16 07:03 ciprofloxacin HCl Allergy Verified 06/04/16 07:03 [From Cipro] cyclobenzaprine HCl Allergy Verified 06/04/16 07:03 [From Flexeril] dicyclomine Allergy Verified 06/04/16 07:03 glimepiride [From Amaryl] Allergy Verified 06/04/16 07:03 metoclopramide HCl Allergy Verified 06/04/16 07:03 [From Reglan] Penicillins Allergy Verified 06/04/16 07:03 pregabalin [From Lyrica] Allergy Verified 06/04/16 07:03 prochlorperazine edisylate Allergy Verified 06/04/16 07:03 [From Compazine] prochlorperazine maleate Allergy Verified 06/04/16 07:03 [From Compazine] pseudoephedrine HCl Allergy Verified 06/04/16 07:03 [From Deconamine] thiethylperazine maleate Allergy Verified 06/04/16 07:03 [From Torecan] timolol maleate Allergy Verified 06/04/16 07:03 [From Combigan] Patient Problems: Current Active Problems Problem Status Onset Fracture, femur, distal, open Acute Diabetes type 2, controlled Chronic Hyperuricemia Chronic Discharge Summary: Patient did well with PT and OT. She was highly motivated and participated well. At the time of discharge patient could put about 25% weight, toe touch weight bearing on her effected leg. Patient did have a noninjury fall during her SNF stay. Because of increase fall risk patient will be continued with home health for further OT and Pt services. Diabetes remained stable with blood sugars running in the 100 range most of the time. Patient was on a sliding scale insulin order but this was discontinued. Patient did not have nay gout issues while hospitalized. Thyroid remained stable with patient being maintained on home dosage. - Final Diagnosis (1) Fracture, femur, distal, open Problems: stable (2) Diabetes type 2, controlled Problems: stable
[2016-06-19 13:58] VITALS: BP 145/51
== END 2016-06-19 13:10 | disposition home health service (06) | DRG 561 ==
LOC: SOUTH 14:20
PROVIDERS: ADMIT Family Medicine; ATTEND Family Medicine
DX: S72.91XE Unspecified fracture of right femur, subsequent encounter for open fracture type I or II with routine healing (principal); E11.9 Type 2 diabetes mellitus without complications; W19.XXXD Unspecified fall, subsequent encounter; Y93.9 Activity, unspecified; Y99.9 Unspecified external cause status
CPT/HCPCS: 36415; 71100; 72072; 80053; 83036; 85025; 97110; 97112; 97116; 97162; 97165; 97530; 97535; J1642; J1650; J1815

== ENCOUNTER 2016-06-25 16:35 | Emergency (ER) | payer OTHER ==
--- NOTE | 2016-06-25 17:00 | ED Physician Documentation ---
General Adult - HISTORIAN Historian: patient - HPI Stated Complaint: not feeling well, weak Chief Complaint: General Adult Onset: days ago (2 days) Timing: still present Context: no precipitating factor Further Comments: yes (Romel was recently discharged home from SNF last week. Did well until two days ago where she developed a low grade fever. Feels weaker , appitite has been good, has had some mild nausea, no vomiting or diarrhea. Cough productive of some green phlegm. No blood noted. Pressure and headache to frontal area. Wound reported to be looking good.) - ROS CONST: fever (?), chills CVS/RESP: none GI/: none. denies: abdominal pain, problems urinating - PAST HX Past History: other (history of lymphoma, in remission. ) Other History: diabetes Type 2, other (hypothyroidis, hyperuricemia) Surgeries/Procedures: other (ORIF distal femur fracture, appendectomy, cataract extraction, TKR with revision, T&A) Allergies/Adverse Reactions: Allergies Allergy/AdvReac Type Severity Reaction Status Date / Time acyclovir Allergy Verified 06/25/16 16:57 amoxicillin [Amoxicillin] Allergy Verified 06/25/16 16:57 brimonidine tartrate Allergy Verified 06/25/16 16:57 [From Combigan] chlorpheniramine maleate Allergy Verified 06/25/16 16:57 [From Deconamine] ciprofloxacin [From Cipro] Allergy Verified 06/25/16 16:57 ciprofloxacin HCl Allergy Verified 06/25/16 16:57 [From Cipro] cyclobenzaprine HCl Allergy Verified 06/25/16 16:57 [From Flexeril] dicyclomine Allergy Verified 06/25/16 16:57 glimepiride [From Amaryl] Allergy Verified 06/25/16 16:57 metoclopramide HCl Allergy Verified 06/25/16 16:57 [From Reglan] Penicillins Allergy Verified 06/25/16 16:57 pregabalin [From Lyrica] Allergy Verified 06/25/16 16:57 prochlorperazine edisylate Allergy Verified 06/25/16 16:57 [From Compazine] prochlorperazine maleate Allergy Verified 06/25/16 16:57 [From Compazine] pseudoephedrine HCl Allergy Verified 06/25/16 16:57 [From Deconamine] thiethylperazine maleate Allergy Verified 06/25/16 16:57 [From Torecan] timolol maleate Allergy Verified 06/25/16 16:57 [From Combigan] Home Medications: Ambulatory Orders Medication Instructions Recorded Allopurinol [Zyloprim] 300 mg PO D 06/04/16 Calcium Carb 500/Vit D 200 1 each PO TID 06/04/16 [CALTRATE WITH VIT D] Ergocalciferol (Vitamin D2) 50,000 unit PO WEEK 06/04/16 [Vitamin D-2] Gabapentin 600 mg PO TID 06/04/16 Levothyroxine Sodium [Levoxyl] 88 mcg PO 0700 06/04/16 Metformin HCl [Glucophage] 1,000 [place] [address] 06/04/16 Mv-Mn/FA/Vit K/Lycop/Lut/Zeaxa 1 each PO D 06/04/16 [Ocuvite Eye + Multi Tablet] Omeprazole [Prilosec] 40 mg PO D 06/04/16 Raloxifene HCl 60 mg PO D 06/04/16 Sennosides/Docusate Sodium 2 each PO HS PRN 06/04/16 [Docusate Sodium-Senna Tablet] Aspirin [Mary] 81 mg PO DAILY tab.chew 06/19/16 Polyethylene Glycol 3350 [Miralax] 17 gm PO 1100 PRN #30 powd.pack 06/19/16 Zolpidem Tartrate [Ambien] 5 mg PO HS PRN #20 tablet 06/19/16 - SOCIAL HX Smoking History: non-smoker Alcohol Use: none Drug Use: none - FAMILY HX Family History: No - VITAL SIGNS Vital Signs: Vital Signs Temp Pulse Resp BP Pulse Ox 98.5 F 75 18 135/73 98 06/25/16 16:53 06/25/16 16:53 06/25/16 16:53 06/25/16 16:53 06/25/16 16:53 - REVIEWED ASSESSMENTS Nursing Assessment Reviewed: Yes Vitals Reviewed: Yes General Adult Physical Exam - PHYSICAL EXAM GENERAL APPEARANCE: no distress NECK: normal inspection, thyroid normal, supple RESPIRATORY: no resp distress, chest non-tender, breath sounds normal. No: wheezes, rales, rhonchi CVS: reg rate & rhythm, heart sounds normal, equal pulses, no murmur ABDOMEN: soft, no organomegaly, normal bowel sounds, no abdominal bruit, no distension, non-tender BACK: normal inspection, no CVA tenderness SKIN: warm/dry, normal color EXTREMITIES: other (RLE surgical wound is clean and dry, healing) NEURO: oriented X3, CN's nml as tested Discharge Clincal Impression: Generalized weakness Referrals: Jennifer Lee, PRN [Primary Care Provider] - 2 Days Additional Instructions: Continue taking Azithromycin as instructed. Drink a lot of fluids. If symptoms do not improve to call or return to the ED. Home Medications: Ambulatory Orders Allopurinol [Zyloprim] 300 mg PO D 06/04/16 Calcium Carb 500/Vit D 200 [CALTRATE WITH VIT D] 1 each PO TID 06/04/16 Ergocalciferol (Vitamin D2) [Vitamin D-2] 50,000 unit PO WEEK 06/04/16 Gabapentin 600 mg PO TID 06/04/16 Levothyroxine Sodium [Levoxyl] 88 mcg PO 0700 06/04/16 Metformin HCl [Glucophage] 1,[place] [address] 06/04/16 Mv-Mn/FA/Vit K/Lycop/Lut/Zeaxa [Ocuvite Eye + Multi Tablet] 1 each PO D Omeprazole [Prilosec] 40 mg PO D 06/04/16 Raloxifene HCl 60 mg PO D 06/04/16 Sennosides/Docusate Sodium [Docusate Sodium-Senna Tablet] 2 each PO HS PRN 06/04 Aspirin [Mary] 81 mg PO DAILY tab.chew 06/19/16 Polyethylene Glycol 3350 [Miralax] 17 gm PO 1100 PRN #30 powd.pack 06/19/16 Zolpidem Tartrate [Ambien] 5 mg PO HS PRN #20 tablet 06/19/16 Decision to Admit: NO Date of Decison to Admit: 06/25/16 Decision Time: 18:35
[2016-06-25 17:59] LABS: MEAN CORPUSCULAR HEMOGLOBIN 31.8 pg (28.0-34.0); MEAN CORPUSCULAR VOLUME 99.7 fl (80.0-100.0)
[2016-06-25 18:04] LABS: APPEARANCE,URINE Clear (CLEAR); COLOR,URINE Yellow (YELLOW); OCCULT BLOOD,URINE Negative (NEGATIVE)
[2016-06-25 18:08] LABS: eGFR (African) > 60; eGFR (Non-African) > 60
[2016-06-25 18:23] LABS: MONOCYTES % 7 % (0-11); SEGMENTED NEUTROPHILS % 43 % (39-79)
[2016-06-25 18:24] LABS: EOSINOPHILS % 4 % (0-7)
[2016-06-25 18:50] VITALS: BP 130/71
== END 2016-06-25 18:40 ==
LOC: ED 16:35
DX: R53.1 Weakness (principal)
CPT/HCPCS: 36415; 80053; 81002; 84443; 85025; 99283

== ENCOUNTER 2016-07-31 09:08 | Outpatient (CLI) | payer OTHER | END 2016-07-31 09:10 | LOC: POD 09:08 | PROVIDERS: ATTEND Podiatrist Public Medicine | DX: B35.1 Tinea unguium (principal); E11.9 Type 2 diabetes mellitus without complications; L60.0 Ingrowing nail; M79.674 Pain in right toe(s); M79.675 Pain in left toe(s) | CPT/HCPCS: 10060; 11721; G0463 ==

== ENCOUNTER 2016-09-02 13:21 | Outpatient (CLI) | payer OTHER | END 2016-09-02 13:22 | LOC: LAB 13:21 | PROVIDERS: ATTEND Nurse Practitioner Family | DX: D75.89 Other specified diseases of blood and blood-forming organs (principal) | CPT/HCPCS: 36415; 82607; 82746 ==

== ENCOUNTER 2016-09-03 15:35 | Outpatient (CLI) | payer OTHER | END 2016-09-03 15:36 | LOC: POD 15:35 | PROVIDERS: ATTEND Podiatrist | DX: M67.472 Ganglion, left ankle and foot (principal) | CPT/HCPCS: G0463 ==

== ENCOUNTER 2016-09-13 12:58 | Outpatient (CLI) | payer OTHER | END 2016-09-13 13:00 | LOC: POD 12:58 | PROVIDERS: ATTEND Podiatrist | DX: M20.42 Other hammer toe(s) (acquired), left foot (principal) | CPT/HCPCS: G0463 ==

== ENCOUNTER 2016-09-30 08:26 | Outpatient (CLI) | payer OTHER ==
[2016-09-30 08:41] LABS: BASOPHILS % 0.9 (0.0-1.5); EOSINOPHILS % 1.3 % (0.0-6.8); MEAN CORPUSCULAR HEMOGLOBIN 31.5 pg (28.0-34.0); MEAN CORPUSCULAR VOLUME 98.6 fl (80.0-100.0); MONOCYTES % 6.2 % (0.0-11.0); NEUTROPHILS # 2.2 # k/uL (1.4-7.7)
== END 2016-09-30 10:00 ==
LOC: LAB 08:26
PROVIDERS: ATTEND Nurse Practitioner Family
DX: D75.89 Other specified diseases of blood and blood-forming organs (principal)
CPT/HCPCS: 36415; 85025

== ENCOUNTER 2016-10-01 09:51 | Day surgery (SDC) | payer OTHER ==
[~2016-10-01 09:51] MED LIST: HEPARIN SODIUM 500 UNIT/5 ML DISP.SYRIN IV ONE; LACTATED RINGERS 1,000 ML IV.SOLN IV ONE; Lidocaine 1% 20ml (SOUTH OMNI) ONE; PROPOFOL 200 MG/20 ML VIAL IV ONE; SALINE FLUSH 10 ML DISP.SYRIN IVF ONE
== END 2016-10-01 09:52 ==
LOC: OPSURG 09:51
PROVIDERS: ATTEND Podiatrist
DX: M20.41 Other hammer toe(s) (acquired), right foot (principal)
CPT/HCPCS: 28285; J1642; J2704; J7030; J7120

== ENCOUNTER 2016-10-11 13:07 | Outpatient (CLI) | payer OTHER | END 2016-10-11 13:10 | LOC: POD 13:07 | PROVIDERS: ATTEND Podiatrist | DX: M20.42 Other hammer toe(s) (acquired), left foot (principal) | CPT/HCPCS: G0463 ==

== ENCOUNTER 2016-10-22 12:38 | Outpatient (CLI) | payer OTHER | END 2016-10-22 12:40 | LOC: POD 12:38 | PROVIDERS: ATTEND Podiatrist | DX: M20.42 Other hammer toe(s) (acquired), left foot (principal) ==

== ENCOUNTER 2016-11-07 17:14 | Inpatient (IN) | payer OTHER ==
[2016-11-07 18:29] VITALS: BMI 41.6
--- NOTE | 2016-11-07 18:45 | History and Physical Report ---
History of Present Illnes - History of Present Illness Reason for Visit: Gait disturbance post R hip fracture History of Present Illness: 86-year-old white female who sustained a right hip fracture earlier this year. Patient has been progressing well. Last week while walking her right leg gave way on her and she sustained a fracture to the distal femur below the previous fixation. Patient subsequently underwent an open reduction internal fixation of the distal femur fracture. Patient did not have any intraoperative complications or postoperative complications. Patient was subsequently transferred to this institution for further rehab services.Patient states that her pain has been fairly well controlled. Patient denies any constipation problems. Appetite has been good. Patient has had minimum physical therapy. 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), Tonsillectomy, Other ( spine surgery x2) - Past Family History Father Family History: CAD, (72yo) Mother Family History: (85yo advanced age) Brother 1 Family History: Cancer (lymphoma), (cancer) Brother 2 Family History: Cancer (colon), Brother 3 Family History: Cancer (brain), Brother 4 Family History: (advanced age) Brother 5 Family History: (2016) - Past Social History Smoke: No Alcohol: None Drugs: None Lives: With Family Domestic Violence: Negative - Health Maintenance Health Maintenance: Mammogram, DEXA (2017) Influenza Vaccine: No Pneumonia Vaccine: Yes Resuscitation Status: Resusciation Status Resuscitation Status Full Code - Unable to Obtain History Unable to Obtain: No Review of Systems - Review of Systems Constitutional: negative: Fever, Chills, Sweats, Weakness Eyes: negative: pain, vision change ENT: negative: Ear Pain, Ear Discharge, Nose Pain, Nose Discharge, Nose Congestion, Mouth Pain, Throat Swelling Respiratory: negative: Cough, Dry, Shortness of Breath, Hemoptysis, SOB with Excertion, Pleuritic Pain, Sputum, Wheezing Cardiovascular: negative: Chest Pain, Palpitations, Orthopnea, Paroxysmal Noc. Dyspnea, Edema, Light Headedness Gastrointestinal: Constipation (stable). negative: Nausea, Vomiting, Abdominal Pain, Diarrhea, Melena, Hematochezia Genitourinary: negative: Dysuria, Frequency, Incontinence, Hematuria Musculoskeletal: Leg Pain Skin: Other (contusion to R upper arm). negative: Rash Neurological: Weakness. negative: Numbness, Incoordination, Change in Speech, Confusion, Seizures - Medications/Allergies Allergies/Adverse Reactions: Allergies Allergy/AdvReac Type Severity Reaction Status Date / Time acyclovir Allergy Verified 11/07/16 17:47 amoxicillin [Amoxicillin] Allergy Verified 11/07/16 17:47 brimonidine tartrate Allergy Verified 11/07/16 17:47 [From Combigan] chlorpheniramine maleate Allergy Verified 11/07/16 17:47 [From Deconamine] ciprofloxacin [From Cipro] Allergy Verified 11/07/16 17:47 ciprofloxacin HCl Allergy Verified 11/07/16 17:47 [From Cipro] cyclobenzaprine HCl Allergy Verified 11/07/16 17:47 [From Flexeril] dicyclomine Allergy Verified 11/07/16 17:47 glimepiride [From Amaryl] Allergy Verified 11/07/16 17:47 metoclopramide HCl Allergy Verified 11/07/16 17:47 [From Reglan] Penicillins Allergy Verified 11/07/16 17:47 pregabalin [From Lyrica] Allergy Verified 11/07/16 17:47 prochlorperazine edisylate Allergy Verified 11/07/16 17:47 [From Compazine] prochlorperazine maleate Allergy Verified 11/07/16 17:47 [From Compazine] pseudoephedrine HCl Allergy Verified 11/07/16 17:47 [From Deconamine] thiethylperazine maleate Allergy Verified 11/07/16 17:47 [From Torecan] timolol maleate Allergy Verified 11/07/16 17:47 [From Combigan] Home Medications: Home Medications Ibuprofen [Advil] 400 mg PO Q6 PRN 11/07/16 Propylene Glycol/Peg 400/Pf [Systane 0.3-0.4% Eye Drops] 2 drop OP BID 11/07/16 Current Inpatient Medications: Current Inpatient Medications Allopurinol (Zyloprim) 300 mg PO DAILY [facility] Artificial Tears (Nature's Tears Opth Lily) 2 drop OP BID [facility] Calcium/Vitamin D (Caltrate With Vit D-3) 1 each PO TID [facility] Enoxaparin Sodium (Lovenox) 30 mg SQ QD [facility] Stop: 11/20/16 19:01 Ergocalciferol (Vitamin D2) 50,000 unit PO WEEK [facility] Gabapentin (Neurontin) 600 mg PO TID [facility] Ibuprofen (Advil) 400 mg PO Q6 PRN PRN Reason: PAIN Levothyroxine Sodium (Synthroid) 75 mcg PO 0700 [facility] Metformin HCl (Glucophage) 1,[place] [address] [facility] Miscellaneous (Non Form) 1 each PO D [facility] Pantoprazole Sodium (Protonix) 40 mg PO 0700 [place] Polyethylene Glycol (Miralax) 17 gm PO 1100 PRN PRN Reason: Constipation Senna/Docusate Sodium (Senna Plus Tablet) 2 each PO HS PRN PRN Reason: Constipation Zolpidem Tartrate (Ambien) 5 mg PO HS PRN PRN Reason: Insomnia Exam - Exam Vital Signs: Vital Signs (72 hours) 11/07/16 17:47 Temperature 97.3 F L Respiratory 18 Rate Blood Pressure 130/71 [Right Arm] General: Alert, Oriented to Person, Oriented to Place, Oriented to Time, Cooperative HEENT: Atraumatic, PERRLA, EOMI, Mouth Mucous membr. moist/Nambe, Nose Mucous membr. moist/Nambe, Edentulous, Hearing Grossly Normal Neck: Normal Range of Motion. No: Stridor, Rigidity, Lymphadenopathy Carotids: WNL Thyroid: WNL Lungs: Clear to auscultation, Normal air movement, Speaks full Sentences. No: Respiratory Distress, Wheezes, Rales, Rhonchi Cardiovascular: Regular rate, Normal S1, Normal S2, No murmurs Abdomen: Normal bowel sounds, Soft, No tenderness, No hepatospenomegaly, No masses. No: Distended Integumentary: Normal, Nambe, Warm, Dry, Other (surgical inscision healling well with minimal draiange over lateral right upper leg) Extremities: Normal pulses, Other (trace to 1 plus edema to the RLE) Neurological: Normal speech, Strength Equal Bilat, Normal tone, Sensation intact , Cranial nerves 3-12 NL, Reflexes 2+. No: Normal gait Psych/Mental Status: Mental status NL, Mood NL, Appropriate Affect, Intact Judgment Assessment/Plan - Assessment/Plan (1) Gait disturbance Status: Acute Current Visit: Yes Assessment: Patient will be started on physical and occupational therapy. It is the goal for the patient to return back to her apartment. (2) Peripheral neuropathy Status: Chronic Current Visit: Yes Assessment: Stable. (3) GERD (gastroesophageal reflux disease) Status: Chronic Current Visit: Yes Assessment: Stable, will continue with home medications. 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 (5) Hyperuricemia Status: Chronic Current Visit: No Assessment: Will monitor and continue with home medications. VTE Assessment - RISK FACTOR SCORE VTE RISK FACTOR SCORES: AGE OVER 60 YEARS, ANTICIPATED BED CONFINEMENT OR IMMOBILIZATION > 24 HOURS, HIP, PELVIS, OR LEG FX - RISK VTE HIGH RISK: SCORE OF 3-4 (RISK PROXIMAL DVT 4-8%) PROPHYLAXIS NEEDED
[2016-11-07] MEDS: PANTOPRAZOLE SODIUM 40 MG TABLET PO SCH (19:05)
[2016-11-07] MEDS: LEVOTHYROXINE SODIUM 25 MCG TABLET PO SCH (19:06)
[2016-11-07] MEDS: ENOXAPARIN SODIUM 30 MG/0.3 ML DISP.SYRIN SQ SCH (19:06)
[2016-11-07] MEDS: HYPROMELLOSE OPTH DROPS OP SCH ×2 (19:12→20:13)
[2016-11-07] MEDS: HYDROcodone /APAP 5/325 1 EACH TABLET PO PRN (23:00)
[2016-11-08] MEDS: PANTOPRAZOLE SODIUM 40 MG TABLET PO SCH (06:14)
[2016-11-08] MEDS: LEVOTHYROXINE SODIUM 25 MCG TABLET PO SCH (06:14)
[2016-11-08] MEDS: HYPROMELLOSE OPTH DROPS OP SCH ×4 (08:39→19:46)
[2016-11-08] MEDS: GABAPENTIN 300 MG CAPSULE PO SCH ×3 (08:39→17:42)
[2016-11-08] MEDS: ALLOPURINOL 100 MG TABLET PO SCH (08:40)
[2016-11-08] MEDS: CALCIUM CARB 600MG/VIT D-3 400 1 EACH TABLET PO SCH ×3 (08:50→17:42)
[2016-11-08] MEDS: HYDROcodone /APAP 5/325 1 EACH TABLET PO PRN ×3 (08:51→21:23)
[2016-11-08] MEDS ORDERED: Non-Formulary 1 EACH PO SCH (09:00)
[2016-11-08] MEDS: ALENDRONATE SODIUM 70 MG TABLET PO SCH (17:41)
[2016-11-08] MEDS: ENOXAPARIN SODIUM 30 MG/0.3 ML DISP.SYRIN SQ SCH (17:44)
[2016-11-09] MEDS: LEVOTHYROXINE SODIUM 25 MCG TABLET PO SCH (06:33)
[2016-11-09] MEDS: PANTOPRAZOLE SODIUM 40 MG TABLET PO SCH (06:33)
[2016-11-09] MEDS: HYDROcodone /APAP 5/325 1 EACH TABLET PO PRN ×2 (06:33→20:02)
[2016-11-09] MEDS: CALCIUM CARB 600MG/VIT D-3 400 1 EACH TABLET PO SCH ×3 (08:42→18:13)
[2016-11-09] MEDS: GABAPENTIN 300 MG CAPSULE PO SCH ×3 (08:43→18:13)
[2016-11-09] MEDS: ALLOPURINOL 100 MG TABLET PO SCH (08:43)
[2016-11-09] MEDS: HYPROMELLOSE OPTH DROPS OP SCH ×4 (08:46→20:04)
[2016-11-09] MEDS: IBUPROFEN 400 MG TABLET PO PRN (10:20)
[2016-11-09] MEDS: ENOXAPARIN SODIUM 30 MG/0.3 ML DISP.SYRIN SQ SCH (18:13)
[2016-11-10] MEDS: HYPROMELLOSE OPTH DROPS OP SCH ×4 (12:37→19:57)
[2016-11-10] MEDS: LEVOTHYROXINE SODIUM 25 MCG TABLET PO SCH (12:37)
[2016-11-10] MEDS: PANTOPRAZOLE SODIUM 40 MG TABLET PO SCH (12:37)
[2016-11-10] MEDS: ALLOPURINOL 100 MG TABLET PO SCH (12:38)
[2016-11-10] MEDS: CALCIUM CARB 600MG/VIT D-3 400 1 EACH TABLET PO SCH ×3 (12:38→17:45)
[2016-11-10] MEDS: GABAPENTIN 300 MG CAPSULE PO SCH ×3 (12:38→17:45)
[2016-11-10] MEDS: ENOXAPARIN SODIUM 30 MG/0.3 ML DISP.SYRIN SQ SCH (17:45)
[2016-11-10] MEDS: HYDROcodone /APAP 5/325 1 EACH TABLET PO PRN (19:57)
[2016-11-11] MEDS: PANTOPRAZOLE SODIUM 40 MG TABLET PO SCH (05:55)
[2016-11-11] MEDS: LEVOTHYROXINE SODIUM 25 MCG TABLET PO SCH (05:55)
[2016-11-11 06:51] LABS: BASOPHILS % 0.5 (0.0-1.5); EOSINOPHILS % 1.6 % (0.0-6.8); MEAN CORPUSCULAR HEMOGLOBIN 30.6 pg (28.0-34.0); MEAN CORPUSCULAR VOLUME 95.9 fl (80.0-100.0); MONOCYTES % 4.1 % (0.0-11.0); NEUTROPHILS # 5.1 # k/uL (1.4-7.7)
[2016-11-11] MEDS: HYDROcodone /APAP 5/325 1 EACH TABLET PO PRN ×2 (07:39→18:37)
[2016-11-11 07:42] LABS: eGFR (African) > 60; eGFR (Non-African) > 60
[2016-11-11] MEDS: CALCIUM CARB 600MG/VIT D-3 400 1 EACH TABLET PO SCH ×2 (09:02→15:04)
[2016-11-11] MEDS: HYPROMELLOSE OPTH DROPS OP SCH ×2 (09:03→19:10)
[2016-11-11] MEDS: ALLOPURINOL 100 MG TABLET PO SCH (09:03)
[2016-11-11] MEDS: GABAPENTIN 300 MG CAPSULE PO SCH ×3 (09:03→18:36)
[2016-11-11] MEDS: CALCIUM CARBONATE/VITAMIN D3 1 EACH TABLET PO SCH (18:35)
[2016-11-11] MEDS: ENOXAPARIN SODIUM 30 MG/0.3 ML DISP.SYRIN SQ SCH (18:36)
[2016-11-12] MEDS: LEVOTHYROXINE SODIUM 25 MCG TABLET PO SCH (06:02)
[2016-11-12] MEDS: PANTOPRAZOLE SODIUM 40 MG TABLET PO SCH (06:03)
[2016-11-12] MEDS: HYDROcodone /APAP 5/325 1 EACH TABLET PO PRN ×2 (08:06→15:44)
[2016-11-12] MEDS: GABAPENTIN 300 MG CAPSULE PO SCH ×3 (09:46→17:11)
[2016-11-12] MEDS: ALLOPURINOL 100 MG TABLET PO SCH (09:47)
[2016-11-12] MEDS: CALCIUM CARBONATE/VITAMIN D3 1 EACH TABLET PO SCH ×3 (09:51→17:12)
[2016-11-12] MEDS: HYPROMELLOSE OPTH DROPS OP SCH ×2 (09:51→19:38)
[2016-11-12] MEDS: ENOXAPARIN SODIUM 30 MG/0.3 ML DISP.SYRIN SQ SCH (18:31)
[2016-11-13] MEDS: LEVOTHYROXINE SODIUM 25 MCG TABLET PO SCH (05:35)
[2016-11-13] MEDS: PANTOPRAZOLE SODIUM 40 MG TABLET PO SCH (05:35)
[2016-11-13] MEDS: IBUPROFEN 400 MG TABLET PO PRN ×2 (08:05→16:53)
[2016-11-13] MEDS: GABAPENTIN 300 MG CAPSULE PO SCH ×3 (08:09→16:58)
[2016-11-13] MEDS: ALLOPURINOL 100 MG TABLET PO SCH (08:10)
[2016-11-13] MEDS: HYPROMELLOSE OPTH DROPS OP SCH ×2 (08:11→20:28)
[2016-11-13] MEDS: CALCIUM CARBONATE/VITAMIN D3 1 EACH TABLET PO SCH ×3 (08:12→16:58)
[2016-11-13] MEDS ORDERED: CALCIUM CARB 500/VIT D 200 1 EACH TABLET ONE ×2 (11:52→15:52)
[2016-11-13] MEDS: ENOXAPARIN SODIUM 30 MG/0.3 ML DISP.SYRIN SQ SCH (18:09)
[2016-11-14] MEDS ORDERED: CALCIUM CARB 500/VIT D 200 1 EACH TABLET ONE (05:25)
[2016-11-14] MEDS: PANTOPRAZOLE SODIUM 40 MG TABLET PO SCH (05:58)
[2016-11-14] MEDS: LEVOTHYROXINE SODIUM 25 MCG TABLET PO SCH (05:58)
[2016-11-14] MEDS: GABAPENTIN 300 MG CAPSULE PO SCH ×3 (07:44→18:22)
[2016-11-14] MEDS: ALLOPURINOL 100 MG TABLET PO SCH (07:44)
[2016-11-14] MEDS: HYPROMELLOSE OPTH DROPS OP SCH ×2 (07:45→19:39)
[2016-11-14] MEDS: CALCIUM CARBONATE/VITAMIN D3 1 EACH TABLET PO SCH ×3 (07:45→18:23)
--- NOTE | 2016-11-14 08:22 | Inpatient Progress Note ---
Subjective - Required Recertification Statement I anticipate X number of days because-include discharge plan: 7 days - Review of Systems Subjective: Patient seems to be doing well at this time and is progressing with her PT and OT. Pain seems to be well controlled at this time. No constipation issues. Patient voices no complaints at this time. Cardiovascular: Denies: Chest Pain, Palpitations Gastrointestinal: Denies: Nausea, Vomiting, Abdominal Pain, Diarrhea, Constipation Genitourinary: Denies: Dysuria, Frequency, Incontinence Musculoskeletal: Leg Pain (improved) Objective - Exam Vitals and I&O: Vital Signs Temp 97.5 F L 11/13/16 20:29 Pulse 82 11/13/16 20:40 Resp 16 11/13/16 20:40 BP 122/58 11/13/16 20:29 Pulse Ox 100 11/13/16 20:29 Intake & Output 11/13/16 11/13/16 11/14/16 11:59 23:59 11:59 Intake Total 420 1000 Balance 420 1000 Intake: Oral 420 1000 Other: Voiding Method Bedside Commode Bedside Commode # Voids 3 3 3 General: Alert, Oriented to Person, Oriented to Place, Oriented to Time, Cooperative Neck: Supple, No JVD, No thyromegaly Lungs: Clear to auscultation, Normal air movement, Speaks full Sentences, Respiratory Distress. No: Wheezes, Rales, Rhonchi Cardiovascular: Regular rate, Normal S1, Normal S2, No murmurs, Gallops Abdomen: Normal bowel sounds, Soft, No tenderness, No hepatospenomegaly Extremities: No clubbing, No cyanosis, Other (some edema in the right leg) Skin: Normal, [place], Warm, Dry Neurological: Normal speech, Strength Equal Bilat. No: Normal gait - Results Results: Laboratory Results WBC 9.20 K/ul (4.00-12.00) 11/11/16 05:55 RBC 3.07 M/ul (3.90-5.20) L 11/11/16 05:55 Hgb 9.4 g/dL (12.0-16.0) L 11/11/16 05:55 Hct 29.4 % (34.5-46.5) L 11/11/16 05:55 MCV 95.9 fl (80.0-100.0) 11/11/16 05:55 MCH 30.6 pg (28.0-34.0) 11/11/16 05:55 MCHC 31.9 g/dL (30.0-36.0) 11/11/16 05:55 RDW 15.5 % (11.3-14.3) H 11/11/16 05:55 Plt Count 389 K/mm3 (130-400) 11/11/16 05:55 Neut % (Auto) 55.4 % (39.0-79.0) 11/11/16 05:55 Lymph % (Auto) 36.5 % (16.0-50.0) 11/11/16 05:55 Cobb % (Auto) 4.1 % (0.0-11.0) 11/11/16 05:55 Eos % (Auto) 1.6 % (0.0-6.8) 11/11/16 05:55 Baso % (Auto) 0.5 (0.0-1.5) 11/11/16 05:55 Neut # (Auto) 5.1 # k/uL (1.4-7.7) 11/11/16 05:55 Lymph # (Auto) 3.4 # k/uL (0.6-4.0) 11/11/16 05:55 Cobb # (Auto) 0.4 # k/uL (0.0-0.9) 11/11/16 05:55 Eos # (Auto) 0.2 # k/uL (0.0-0.6) 11/11/16 05:55 Baso # (Auto) 0.0 # k/uL (0.0-0.5) 11/11/16 05:55 Reactive Lymphs % 1.8 % (0.0-5.0) 11/11/16 05:55 Reactive Lymphs # 0.2 # k/uL (0.0-0.8) 11/11/16 05:55 Sodium 134 mmol/L (137-145) L 11/11/16 05:55 Potassium 4.3 mmol/L (3.5-5.1) 11/11/16 05:55 Chloride 101 mmol/L (98-107) 11/11/16 05:55 Carbon Dioxide 26 mmol/L (22-30) 11/11/16 05:55 BUN 16 mg/dL (7-17) 11/11/16 05:55 Creatinine 0.70 mg/dL (0.52-1.04) 11/11/16 05:55 Estimated Creat Clear 54 11/11/16 05:55 Est GFR ( Amer) > 60 (60-) 11/11/16 05:55 Est GFR (Non-Af Amer) > 60 (60-) 11/11/16 05:55 Glucose 142 mg/dL (74-106) H 11/11/16 05:55 Estimat Average Glucose 131 mg/dL 11/11/16 05:55 Hemoglobin A1c 6.2 % (4.0-5.6) H 11/11/16 05:55 Calcium 8.8 mg/dL (8.4-10.2) 11/11/16 05:55 Total Bilirubin 0.1 mg/dL (0.2-1.3) L 11/11/16 05:55 AST 12 U/L (15-46) L 11/11/16 05:55 ALT 18 U/L (13-69) 11/11/16 05:55 Alkaline Phosphatase 81 U/L (38-126) 11/11/16 05:55 Total Protein 5.7 g/dL (6.3-8.2) L 11/11/16 05:55 Albumin 2.8 g/dL (3.5-5.0) L 11/11/16 05:55 Assessment/Plan - Assessment/Plan (1) Gait disturbance Status: Acute Current Visit: Yes Assessment: improved with PT and OT (2) Peripheral neuropathy Status: Chronic Current Visit: Yes (3) GERD (gastroesophageal reflux disease) Status: Chronic Current Visit: Yes (4) Diabetes type 2, controlled Status: Chronic Current Visit: No Qualifiers: Diabetes mellitus complication status: without complication 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
[2016-11-14] MEDS: HYDROcodone /APAP 5/325 1 EACH TABLET PO PRN (12:34)
[2016-11-14] MEDS: ERGOCALCIFEROL (VITAMIN D2) 50,000 UNIT CAPSULE PO SCH (16:58)
[2016-11-14] MEDS: ENOXAPARIN SODIUM 30 MG/0.3 ML DISP.SYRIN SQ SCH (18:22)
[2016-11-15] MEDS ORDERED: CALCIUM CARB 500/VIT D 200 1 EACH TABLET ONE ×2 (04:08→12:11)
[2016-11-15] MEDS: PANTOPRAZOLE SODIUM 40 MG TABLET PO SCH (05:53)
[2016-11-15] MEDS: LEVOTHYROXINE SODIUM 25 MCG TABLET PO SCH (05:53)
[2016-11-15] MEDS: ALENDRONATE SODIUM 70 MG TABLET PO SCH (05:53)
[2016-11-15] MEDS: ALLOPURINOL 100 MG TABLET PO SCH (08:09)
[2016-11-15] MEDS: CALCIUM CARBONATE/VITAMIN D3 1 EACH TABLET PO SCH ×3 (08:09→17:40)
[2016-11-15] MEDS: GABAPENTIN 300 MG CAPSULE PO SCH ×3 (08:09→17:41)
[2016-11-15] MEDS: HYDROcodone /APAP 5/325 1 EACH TABLET PO PRN (08:10)
[2016-11-15] MEDS: HYPROMELLOSE OPTH DROPS OP SCH ×2 (08:39→20:29)
[2016-11-15] MEDS: ENOXAPARIN SODIUM 30 MG/0.3 ML DISP.SYRIN SQ SCH (17:41)
[2016-11-15] MEDS: ZOLPIDEM TARTRATE 5 MG TABLET PO PRN (21:17)
[2016-11-16] MEDS ORDERED: CALCIUM CARB 500/VIT D 200 1 EACH TABLET ONE ×2 (04:00→12:02)
[2016-11-16] MEDS: LEVOTHYROXINE SODIUM 25 MCG TABLET PO SCH (06:19)
[2016-11-16] MEDS: PANTOPRAZOLE SODIUM 40 MG TABLET PO SCH (06:19)
[2016-11-16] MEDS: GABAPENTIN 300 MG CAPSULE PO SCH ×3 (08:31→18:25)
[2016-11-16] MEDS: HYDROcodone /APAP 5/325 1 EACH TABLET PO PRN (08:31)
[2016-11-16] MEDS: ALLOPURINOL 100 MG TABLET PO SCH (08:33)
[2016-11-16] MEDS: CALCIUM CARBONATE/VITAMIN D3 1 EACH TABLET PO SCH ×3 (08:33→18:25)
[2016-11-16] MEDS: HYPROMELLOSE OPTH DROPS OP SCH ×2 (08:34→20:04)
[2016-11-16] MEDS: ENOXAPARIN SODIUM 30 MG/0.3 ML DISP.SYRIN SQ SCH (18:25)
[2016-11-17] MEDS ORDERED: CALCIUM CARB 500/VIT D 200 1 EACH TABLET ONE ×3 (01:55→15:41)
[2016-11-17] MEDS: PANTOPRAZOLE SODIUM 40 MG TABLET PO SCH (05:50)
[2016-11-17] MEDS: LEVOTHYROXINE SODIUM 25 MCG TABLET PO SCH (05:50)
[2016-11-17] MEDS: HYPROMELLOSE OPTH DROPS OP SCH ×2 (08:30→19:21)
[2016-11-17] MEDS: GABAPENTIN 300 MG CAPSULE PO SCH ×3 (08:30→17:10)
[2016-11-17] MEDS: CALCIUM CARBONATE/VITAMIN D3 1 EACH TABLET PO SCH ×3 (08:31→17:10)
[2016-11-17] MEDS: ALLOPURINOL 100 MG TABLET PO SCH (08:31)
[2016-11-17] MEDS: HYDROcodone /APAP 5/325 1 EACH TABLET PO PRN ×2 (08:36→17:13)
[2016-11-17] MEDS: POLYETHYLENE GLYCOL 3350 17 GM POWD.PACK PO PRN (08:36)
[2016-11-17] MEDS: ENOXAPARIN SODIUM 30 MG/0.3 ML DISP.SYRIN SQ SCH (18:20)
[2016-11-17] MEDS: ZOLPIDEM TARTRATE 5 MG TABLET PO PRN (21:12)
[2016-11-18] MEDS ORDERED: CALCIUM CARB 500/VIT D 200 1 EACH TABLET ONE ×2 (04:36→11:04)
[2016-11-18] MEDS: LEVOTHYROXINE SODIUM 25 MCG TABLET PO SCH (05:40)
[2016-11-18] MEDS: HYDROcodone /APAP 5/325 1 EACH TABLET PO PRN (05:40)
[2016-11-18] MEDS: PANTOPRAZOLE SODIUM 40 MG TABLET PO SCH (05:41)
[2016-11-18] MEDS: ALLOPURINOL 100 MG TABLET PO SCH (07:39)
[2016-11-18] MEDS: GABAPENTIN 300 MG CAPSULE PO SCH ×3 (07:39→18:02)
[2016-11-18] MEDS: HYPROMELLOSE OPTH DROPS OP SCH ×2 (07:40→20:19)
[2016-11-18] MEDS: CALCIUM CARBONATE/VITAMIN D3 1 EACH TABLET PO SCH ×3 (07:40→18:03)
[2016-11-18] MEDS: POLYETHYLENE GLYCOL 3350 17 GM POWD.PACK PO PRN (12:18)
[2016-11-18] MEDS: ENOXAPARIN SODIUM 30 MG/0.3 ML DISP.SYRIN SQ SCH (18:02)
[2016-11-18] MEDS: SENNOSIDES/DOCUSATE SODIUM 1 EACH TABLET PO PRN (18:42)
[2016-11-18] MEDS: IBUPROFEN 400 MG TABLET PO PRN (20:18)
[2016-11-18] MEDS: ZOLPIDEM TARTRATE 5 MG TABLET PO PRN (21:29)
[2016-11-19] MEDS ORDERED: CALCIUM CARB 500/VIT D 200 1 EACH TABLET ONE ×2 (04:42→09:18)
[2016-11-19] MEDS: PANTOPRAZOLE SODIUM 40 MG TABLET PO SCH (06:29)
[2016-11-19] MEDS: LEVOTHYROXINE SODIUM 25 MCG TABLET PO SCH (06:29)
[2016-11-19] MEDS: GABAPENTIN 300 MG CAPSULE PO SCH ×3 (08:00→17:25)
[2016-11-19] MEDS: ALLOPURINOL 100 MG TABLET PO SCH (08:00)
[2016-11-19] MEDS: CALCIUM CARBONATE/VITAMIN D3 1 EACH TABLET PO SCH ×3 (08:00→17:25)
[2016-11-19] MEDS: HYPROMELLOSE OPTH DROPS OP SCH ×2 (08:02→19:40)
[2016-11-19] MEDS: IBUPROFEN 400 MG TABLET PO PRN (09:15)
[2016-11-19] MEDS: ENOXAPARIN SODIUM 30 MG/0.3 ML DISP.SYRIN SQ SCH (18:21)
[2016-11-19] MEDS: ZOLPIDEM TARTRATE 5 MG TABLET PO PRN (21:08)
[2016-11-20] MEDS ORDERED: CALCIUM CARB 500/VIT D 200 1 EACH TABLET ONE ×3 (03:30→17:03)
[2016-11-20] MEDS: PANTOPRAZOLE SODIUM 40 MG TABLET PO SCH (05:51)
[2016-11-20] MEDS: LEVOTHYROXINE SODIUM 25 MCG TABLET PO SCH (05:51)
[2016-11-20] MEDS: CALCIUM CARBONATE/VITAMIN D3 1 EACH TABLET PO SCH ×3 (07:41→17:13)
[2016-11-20] MEDS: GABAPENTIN 300 MG CAPSULE PO SCH ×3 (07:42→17:07)
[2016-11-20] MEDS: HYPROMELLOSE OPTH DROPS OP SCH ×2 (07:42→19:43)
[2016-11-20] MEDS: ALLOPURINOL 100 MG TABLET PO SCH (07:42)
[2016-11-20] MEDS: IBUPROFEN 400 MG TABLET PO PRN (09:32)
[2016-11-20] MEDS: ENOXAPARIN SODIUM 30 MG/0.3 ML DISP.SYRIN SQ SCH (19:42)
[2016-11-21] MEDS ORDERED: CALCIUM CARB 500/VIT D 200 1 EACH TABLET ONE ×3 (04:57→17:05)
[2016-11-21] MEDS: PANTOPRAZOLE SODIUM 40 MG TABLET PO SCH (05:52)
[2016-11-21] MEDS: LEVOTHYROXINE SODIUM 25 MCG TABLET PO SCH (05:52)
[2016-11-21] MEDS: POLYETHYLENE GLYCOL 3350 17 GM POWD.PACK PO PRN (07:46)
[2016-11-21] MEDS: IBUPROFEN 400 MG TABLET PO PRN (07:48)
[2016-11-21] MEDS ORDERED: CHOLECALCIFEROL 1,000 UNIT TABLET PO ONE (07:52)
[2016-11-21] MEDS: HYPROMELLOSE OPTH DROPS OP SCH ×2 (07:55→19:20)
[2016-11-21] MEDS: CALCIUM CARBONATE/VITAMIN D3 1 EACH TABLET PO SCH ×3 (07:59→17:10)
[2016-11-21] MEDS: ALLOPURINOL 100 MG TABLET PO SCH (08:00)
[2016-11-21] MEDS: GABAPENTIN 300 MG CAPSULE PO SCH ×3 (08:01→17:09)
[2016-11-21] MEDS: ERGOCALCIFEROL (VITAMIN D2) 50,000 UNIT CAPSULE PO SCH (10:47)
[2016-11-22] MEDS ORDERED: CALCIUM CARB 500/VIT D 200 1 EACH TABLET ONE ×3 (01:49→22:31)
[2016-11-22] MEDS: ALENDRONATE SODIUM 70 MG TABLET PO SCH (06:02)
[2016-11-22] MEDS: PANTOPRAZOLE SODIUM 40 MG TABLET PO SCH (07:22)
[2016-11-22] MEDS: CALCIUM CARBONATE/VITAMIN D3 1 EACH TABLET PO SCH ×3 (07:22→17:24)
[2016-11-22] MEDS: LEVOTHYROXINE SODIUM 25 MCG TABLET PO SCH (07:22)
[2016-11-22] MEDS: ALLOPURINOL 100 MG TABLET PO SCH (07:23)
[2016-11-22] MEDS: GABAPENTIN 300 MG CAPSULE PO SCH ×3 (07:23→17:25)
[2016-11-22] MEDS: HYPROMELLOSE OPTH DROPS OP SCH ×2 (07:23→21:06)
[2016-11-22] MEDS: SENNOSIDES/DOCUSATE SODIUM 1 EACH TABLET PO PRN (08:24)
[2016-11-22] MEDS: POLYETHYLENE GLYCOL 3350 17 GM POWD.PACK PO PRN (08:24)
[2016-11-22] MEDS: IBUPROFEN 400 MG TABLET PO PRN ×2 (08:24→21:05)
[2016-11-22] MEDS ORDERED: BISACODYL 5 MG TABLET.DR PO PRN (20:29)
[2016-11-22] MEDS: ZOLPIDEM TARTRATE 5 MG TABLET PO PRN (21:06)
[2016-11-23] MEDS: PANTOPRAZOLE SODIUM 40 MG TABLET PO SCH (06:20)
[2016-11-23] MEDS: LEVOTHYROXINE SODIUM 25 MCG TABLET PO SCH (06:21)
[2016-11-23] MEDS: GABAPENTIN 300 MG CAPSULE PO SCH ×3 (07:30→18:12)
[2016-11-23] MEDS: CALCIUM CARBONATE/VITAMIN D3 1 EACH TABLET PO SCH ×3 (07:30→18:12)
[2016-11-23] MEDS: HYPROMELLOSE OPTH DROPS OP SCH ×2 (07:31→20:35)
[2016-11-23] MEDS: ALLOPURINOL 100 MG TABLET PO SCH (07:33)
[2016-11-23] MEDS: IBUPROFEN 400 MG TABLET PO PRN ×2 (09:15→21:09)
[2016-11-23] MEDS ORDERED: CALCIUM CARB 500/VIT D 200 1 EACH TABLET ONE (10:52)
[2016-11-23] MEDS: ZOLPIDEM TARTRATE 5 MG TABLET PO PRN (21:10)
[2016-11-24] MEDS: PANTOPRAZOLE SODIUM 40 MG TABLET PO SCH (06:16)
[2016-11-24] MEDS: LEVOTHYROXINE SODIUM 25 MCG TABLET PO SCH (06:16)
[2016-11-24] MEDS ORDERED: CALCIUM CARB 500/VIT D 200 1 EACH TABLET ONE ×2 (08:55→13:17)
[2016-11-24] MEDS ORDERED: SALINE FLUSH 10 ML DISP.SYRIN IVF ONE (09:02)
[2016-11-24] MEDS: ALLOPURINOL 100 MG TABLET PO SCH (09:40)
[2016-11-24] MEDS: CALCIUM CARBONATE/VITAMIN D3 1 EACH TABLET PO SCH ×3 (09:40→17:00)
[2016-11-24] MEDS: GABAPENTIN 300 MG CAPSULE PO SCH ×3 (09:41→17:00)
[2016-11-24] MEDS: HYPROMELLOSE OPTH DROPS OP SCH ×2 (09:41→20:04)
[2016-11-24] MEDS: IBUPROFEN 400 MG TABLET PO PRN ×2 (10:19→20:01)
[2016-11-24] MEDS: ZOLPIDEM TARTRATE 5 MG TABLET PO PRN (20:02)
[2016-11-25] MEDS: PANTOPRAZOLE SODIUM 40 MG TABLET PO SCH (05:53)
[2016-11-25] MEDS: LEVOTHYROXINE SODIUM 25 MCG TABLET PO SCH (05:53)
[2016-11-25] MEDS: IBUPROFEN 400 MG TABLET PO PRN (05:54)
--- NOTE | 2016-11-25 07:47 | Discharge Summary ---
Discharge Summary - Discharge Sumary History of Present Illness: 86-year-old white female who sustained a right hip fracture earlier this year. Patient has been progressing well. Last week while walking her right leg gave way on her and she sustained a fracture to the distal femur below the previous fixation. Patient subsequently underwent an open reduction internal fixation of the distal femur fracture. Patient did not have any intraoperative complications or postoperative complications. Patient was subsequently transferred to this institution for further rehab services.Patient states that her pain has been fairly well controlled. Patient denies any constipation problems. Appetite has been good. Patient has had minimum physical therapy. Condition at Discharge: Stable Home Medications: Ambulatory Orders Medication Instructions Recorded Allopurinol [Zyloprim] 300 mg PO D 06/04/16 Calcium Carb 500/Vit D 200 1 each PO TID 06/04/16 [CALTRATE WITH VIT D] Calcium Carb 500Mg [Tums] 1,000 mg PO DAILY PRN 06/04/16 Enoxaparin Sodium [Lovenox] 40 mg SQ QD 06/04/16 Ergocalciferol (Vitamin D2) 50,000 unit PO WEEK 06/04/16 [Vitamin D-2] Gabapentin 600 mg PO TID 06/04/16 Levothyroxine Sodium [Levoxyl] 88 mcg PO 0700 06/04/16 Metformin HCl [Glucophage] 1,[place] [address] 06/04/16 Mv-Mn/FA/Vit K/Lycop/Lut/Zeaxa 1 each PO D 06/04/16 [Ocuvite Eye + Multi Tablet] Omeprazole [Prilosec] 40 mg PO D 06/04/16 Raloxifene HCl 60 mg PO D 06/04/16 Sennosides/Docusate Sodium 2 each PO HS PRN 06/04/16 [Docusate Sodium-Senna Tablet] oxyCODONE HCL/ACETAMINOPHEN 2 each PO Q4 PRN 06/04/16 [Percocet 5-325 mg Tablet] Polyethylene Glycol 3350 [Miralax] 17 gm PO 1100 PRN #30 powd.pack 06/19/16 Zolpidem Tartrate [Ambien] 5 mg PO HS PRN #20 tablet 06/19/16 Ibuprofen [Advil] 400 mg PO Q6 PRN 11/07/16 Propylene Glycol/Peg 400/Pf 2 drop OP BID 11/07/16 [Systane 0.3-0.4% Eye Drops] Consultations this Visit: None Procedures this Visit: None Allergies/Adverse Reactions: Allergies Allergy/AdvReac Type Severity Reaction Status Date / Time acyclovir Allergy Verified 11/07/16 17:47 amoxicillin [Amoxicillin] Allergy Verified 11/07/16 17:47 brimonidine tartrate Allergy Verified 11/07/16 17:47 [From Combigan] chlorpheniramine maleate Allergy Verified 11/07/16 17:47 [From Deconamine] ciprofloxacin [From Cipro] Allergy Verified 11/07/16 17:47 ciprofloxacin HCl Allergy Verified 11/07/16 17:47 [From Cipro] cyclobenzaprine HCl Allergy Verified 11/07/16 17:47 [From Flexeril] dicyclomine Allergy Verified 11/07/16 17:47 glimepiride [From Amaryl] Allergy Verified 11/07/16 17:47 metoclopramide HCl Allergy Verified 11/07/16 17:47 [From Reglan] Penicillins Allergy Verified 11/07/16 17:47 pregabalin [From Lyrica] Allergy Verified 11/07/16 17:47 prochlorperazine edisylate Allergy Verified 11/07/16 17:47 [From Compazine] prochlorperazine maleate Allergy Verified 11/07/16 17:47 [From Compazine] pseudoephedrine HCl Allergy Verified 11/07/16 17:47 [From Deconamine] thiethylperazine maleate Allergy Verified 11/07/16 17:47 [From Torecan] timolol maleate Allergy Verified 11/07/16 17:47 [From Combigan] Patient Problems: Current Active Problems Problem Status Onset Gait disturbance Acute GERD (gastroesophageal reflux disease) Chronic Peripheral neuropathy Chronic
[2016-11-25] MEDS: ALLOPURINOL 100 MG TABLET PO SCH (08:30)
[2016-11-25] MEDS: CALCIUM CARBONATE/VITAMIN D3 1 EACH TABLET PO SCH ×2 (08:31→13:36)
[2016-11-25] MEDS: HYPROMELLOSE OPTH DROPS OP SCH (08:32)
[2016-11-25] MEDS: GABAPENTIN 300 MG CAPSULE PO SCH ×2 (08:34→13:36)
[2016-11-25] MEDS ORDERED: [UNRECOGNIZED DRUG - OTHER] IM ONE (09:27)
[2016-11-25 09:29] VITALS: BP 130/61
[2016-11-25] MEDS: POLYETHYLENE GLYCOL 3350 17 GM POWD.PACK PO PRN (13:30)
== END 2016-11-25 15:05 | disposition home health service (06) | DRG 93 ==
LOC: SOUTH 17:14
PROVIDERS: ADMIT Family Medicine; ATTEND Family Medicine
DX: R26.89 Other abnormalities of gait and mobility (principal); G62.9 Polyneuropathy, unspecified; K21.9 Gastro-esophageal reflux disease without esophagitis; E11.9 Type 2 diabetes mellitus without complications; E79.0 Hyperuricemia without signs of inflammatory arthritis and tophaceous disease
CPT/HCPCS: 36415; 80053; 83036; 85025; J1650; A9270-GY

== ENCOUNTER 2016-12-24 13:55 | Outpatient (CLI) | payer OTHER | END 2016-12-24 13:56 | LOC: POD 13:55 | PROVIDERS: ATTEND Podiatrist | DX: B35.1 Tinea unguium (principal); M79.674 Pain in right toe(s); M79.675 Pain in left toe(s) | CPT/HCPCS: 11721; G0463 ==

== ENCOUNTER 2017-01-03 06:53 | Outpatient (CLI) | payer OTHER ==
[2017-01-03 07:28] LABS: BASOPHILS % 0.6 (0.0-1.5); EOSINOPHILS % 3.2 % (0.0-6.8); MEAN CORPUSCULAR HEMOGLOBIN 31.3 pg (28.0-34.0); MONOCYTES % 4.4 % (0.0-11.0); NEUTROPHILS # 3.6 # k/uL (1.4-7.7)
[2017-01-03 07:53] LABS: eGFR (African) > 60; eGFR (Non-African) > 60
== END 2017-01-03 07:00 ==
LOC: LAB 06:53
PROVIDERS: ATTEND Nurse Practitioner Family
DX: E11.65 Type 2 diabetes mellitus with hyperglycemia (principal); M81.0 Age-related osteoporosis without current pathological fracture; E03.4 Atrophy of thyroid (acquired); M10.00 Idiopathic gout, unspecified site; F51.05 Insomnia due to other mental disorder
CPT/HCPCS: 36415; 80053; 80061; 82306; 83036; 84443; 84550; 85025

== ENCOUNTER 2017-03-25 13:12 | Outpatient (CLI) | payer OTHER | END 2017-03-25 13:13 | LOC: POD 13:12 | PROVIDERS: ATTEND Podiatrist | DX: B35.1 Tinea unguium (principal); M79.674 Pain in right toe(s); M79.675 Pain in left toe(s) | CPT/HCPCS: 11721; G0463 ==

== ENCOUNTER 2017-05-05 09:09 | Outpatient (CLI) | payer OTHER | END 2017-05-05 09:10 | LOC: OUT 09:09 | PROVIDERS: ATTEND Pain Medicine Interventional Pain Medicine | DX: M48.07 Spinal stenosis, lumbosacral region (principal); M51.37 Other intervertebral disc degeneration, lumbosacral region; M41.27 Other idiopathic scoliosis, lumbosacral region; M96.1 Postlaminectomy syndrome, not elsewhere classified; M54.5 Low back pain; Z13.9 Encounter for screening, unspecified ==

== ENCOUNTER 2017-05-17 07:56 | Emergency (ER) | payer OTHER ==
--- NOTE | 2017-05-17 08:04 | ED Physician Documentation ---
General Adult - HISTORIAN Historian: patient - HPI Stated Complaint: conjunctivitis Chief Complaint: General Adult Onset: days ago (1) Timing: still present Severity: moderate Further Comments: yes (Pt is an 86 yo female) - ROS CONST: no problems EYES/ENT: other (eye inflammation) CVS/RESP: none GI/: none MS/SKIN/LYMPH: none - PAST HX Past History: other (R femur fracture) Allergies/Adverse Reactions: Allergies Allergy/AdvReac Type Severity Reaction Status Date / Time acyclovir Allergy Verified 11/07/16 17:47 amoxicillin [Amoxicillin] Allergy Verified 11/07/16 17:47 brimonidine tartrate Allergy Verified 11/07/16 17:47 [From Combigan] chlorpheniramine maleate Allergy Verified 05/17/17 08:06 [From Deconamine] ciprofloxacin [From Cipro] Allergy Verified 05/17/17 08:06 ciprofloxacin HCl Allergy Verified 05/17/17 08:06 [From Cipro] cyclobenzaprine HCl Allergy Verified 05/17/17 08:06 [From Flexeril] dicyclomine Allergy Verified 05/17/17 08:06 glimepiride [From Amaryl] Allergy Verified 05/17/17 08:06 metoclopramide HCl Allergy Verified 05/17/17 08:06 [From Reglan] Penicillins Allergy Verified 05/17/17 08:06 pregabalin [From Lyrica] Allergy Verified 05/17/17 08:06 prochlorperazine edisylate Allergy Verified 05/17/17 08:06 [From Compazine] prochlorperazine maleate Allergy Verified 05/17/17 08:06 [From Compazine] pseudoephedrine HCl Allergy Verified 05/17/17 08:06 [From Deconamine] thiethylperazine maleate Allergy Verified 05/17/17 08:06 [From Torecan] timolol maleate Allergy Verified 05/17/17 08:06 [From Combigan] Home Medications: Ambulatory Orders Medication Instructions Recorded Allopurinol [Zyloprim] 300 mg PO D 06/04/16 Calcium Carb 500/Vit D 200 1 each PO TID 06/04/16 [CALTRATE WITH VIT D] Calcium Carb 500Mg [Tums] 1,000 mg PO DAILY PRN 06/04/16 Enoxaparin Sodium [Lovenox] 40 mg SQ QD 06/04/16 Gabapentin 600 mg PO TID 06/04/16 Levothyroxine Sodium [Levoxyl] 88 mcg PO 0700 06/04/16 Metformin HCl [Glucophage] 1,[place] [address] 06/04/16 Mv-Mn/FA/Vit K/Lycop/Lut/Zeaxa 1 each PO D 06/04/16 [Ocuvite Eye + Multi Tablet] Omeprazole [Prilosec] 40 mg PO D 06/04/16 Raloxifene HCl 60 mg PO D 06/04/16 Sennosides/Docusate Sodium 2 each PO HS PRN 06/04/16 [Docusate Sodium-Senna Tablet] oxyCODONE HCL/ACETAMINOPHEN 2 each PO Q4 PRN 06/04/16 [Percocet 5-325 mg Tablet] Polyethylene Glycol 3350 [Miralax] 17 gm PO 1100 PRN #30 powd.pack 06/19/16 Zolpidem Tartrate [Ambien] 5 mg PO HS PRN #20 tablet 06/19/16 Propylene Glycol/Peg 400/Pf 2 drop OP BID 11/07/16 [Systane 0.3-0.4% Eye Drops] Calcium Carbonate/Vitamin D3 1 each PO TID tablet 11/25/16 [Calcium 500 + Vit D 200 Tablet] - SOCIAL HX Smoking History: non-smoker - FAMILY HX Family History: No - VITAL SIGNS Vital Signs: Vital Signs Temp Pulse Resp BP Pulse Ox 130/61 11/25/16 09:00 - REVIEWED ASSESSMENTS Nursing Assessment Reviewed: Yes Vitals Reviewed: Yes Progress - Progress Progress: Rx Polytrim ophthalmic. One or two drops in both eyes every 4 to 6 hrs for 10 days. (Maximum 6 drops/eye/day) General Adult Physical Exam - PHYSICAL EXAM GENERAL APPEARANCE: no distress EENT: PEPITO, other (b/l conjunctival injection) NECK: normal inspection, supple RESPIRATORY: no resp distress, chest non-tender, breath sounds normal CVS: reg rate & rhythm, heart sounds normal BACK: normal inspection SKIN: warm/dry, normal color EXTREMITIES: non-tender, normal range of motion, no evidence of injury NEURO: oriented X3, motor nml, sensation nml Discharge Clincal Impression: b/l conjunctivitis Referrals: Jennifer Lee, PRN [Primary Care Provider] - Condition: Good Disposition: 01 HOME, SELF-CARE Decision to Admit: NO Decision Time: 08:20
[2017-05-17] MEDS ORDERED: PHARMACY KEY 1 EACH EACH MC ONE (08:07)
== END 2017-05-17 08:27 | disposition home or self-care (01) ==
LOC: ED 07:56
DX: H10.33 Unspecified acute conjunctivitis, bilateral (principal)
CPT/HCPCS: 99282

== ENCOUNTER 2017-06-12 18:09 | Emergency (ER) | payer OTHER ==
[2017-06-12] MEDS ORDERED: 0.9 % SODIUM CHLORIDE 1,000 ML IV ONE (18:29)
[2017-06-12] MEDS ORDERED: 0.9 % SODIUM CHLORIDE 1,000 ML IV SCH (18:30)
[2017-06-12 18:46] LABS: APPEARANCE,URINE CLOUDY (CLEAR); COLOR,URINE YELLOW (YELLOW); OCCULT BLOOD,URINE TRACE-INTACT (NEGATIVE); UROBILINOGEN URINE 0.2 Eu (0.2-1.0)
--- NOTE | 2017-06-12 18:58 | ED Physician Documentation ---
General Adult - HISTORIAN Historian: patient, child - HPI Chief Complaint: General Adult Additional Information: pt under excess st ress dt in hospital and has not been eating and drinking accd dto son sl dm to byu pt. also has frontal headache plus tingling all over Onset: days ago (2) Timing: still present (onset yesterday tingling all over resolved then ret this pm persists) Severity: mild, moderate - ROS CONST: no problems EYES/ENT: denies: problems with vision CVS/RESP: denies: none, chest pain, shortness of breath, cough GI/: none (dperhaps less ua output) MS/SKIN/LYMPH: denies: none - PAST HX Past History: other (diabetes mellitus--appears controlled--plus has lymphoma lont time in remission past 5 yrs) Surgeries/Procedures: other (abd hysterectomy hemorrhoids hernia) Allergies/Adverse Reactions: Allergies Allergy/AdvReac Type Severity Reaction Status Date / Time acyclovir Allergy Verified 11/07/16 17:47 amoxicillin [Amoxicillin] Allergy Verified 11/07/16 17:47 brimonidine tartrate Allergy Verified 11/07/16 17:47 [From Combigan] chlorpheniramine maleate Allergy Verified 05/17/17 08:06 [From Deconamine] ciprofloxacin [From Cipro] Allergy Verified 05/17/17 08:06 ciprofloxacin HCl Allergy Verified 05/17/17 08:06 [From Cipro] cyclobenzaprine HCl Allergy Verified 05/17/17 08:06 [From Flexeril] dicyclomine Allergy Verified 05/17/17 08:06 glimepiride [From Amaryl] Allergy Verified 05/17/17 08:06 metoclopramide HCl Allergy Verified 05/17/17 08:06 [From Reglan] Penicillins Allergy Verified 05/17/17 08:06 pregabalin [From Lyrica] Allergy Verified 05/17/17 08:06 prochlorperazine edisylate Allergy Verified 05/17/17 08:06 [From Compazine] prochlorperazine maleate Allergy Verified 05/17/17 08:06 [From Compazine] pseudoephedrine HCl Allergy Verified 05/17/17 08:06 [From Deconamine] thiethylperazine maleate Allergy Verified 03/31/18 08:06 [From Torecan] timolol maleate Allergy Verified 05/17/17 08:06 [From Combigan] Home Medications: Ambulatory Orders Medication Instructions Recorded Allopurinol [Zyloprim] 300 mg PO D 06/04/16 Calcium Carb 500/Vit D 200 1 each PO TID 06/04/16 [CALTRATE WITH VIT D] Calcium Carb 500Mg [Tums] 1,000 mg PO DAILY PRN 06/04/16 Enoxaparin Sodium [Lovenox] 40 mg SQ QD 06/04/16 Gabapentin 600 mg PO TID 06/04/16 Levothyroxine Sodium [Levoxyl] 88 mcg PO 0700 06/04/16 Metformin HCl [Glucophage] 1,000 [place] [address] 06/04/16 Mv-Min/FA/Vit K/Lycop/Lut/Zeax 1 each PO D 06/04/16 [Ocuvite Eye Plus Multi Tablet] Omeprazole [Prilosec] 40 mg PO D 06/04/16 Raloxifene HCl 60 mg PO D 06/04/16 Sennosides/Docusate Sodium 2 each PO HS PRN 06/04/16 [Docusate Sodium-Senna Tablet] oxyCODONE HCL/ACETAMINOPHEN 2 each PO Q4 PRN 06/04/16 [Percocet 5-325 mg Tablet] Polyethylene Glycol 3350 [Miralax] 17 gm PO 1100 PRN #30 powd.pack 06/19/16 Zolpidem Tartrate [Ambien] 5 mg PO HS PRN #20 tablet 06/19/16 Propylene Glycol/Peg 400/Pf 2 drop OP BID 11/07/16 [Systane 0.3-0.4% Eye Drops] Calcium Carbonate/Vitamin D3 1 each PO TID tablet 11/25/16 [Calcium 500 + Vit D 200 Tablet] - SOCIAL HX Smoking History: non-smoker Alcohol Use: none Drug Use: none - FAMILY HX Family History: No - VITAL SIGNS Vital Signs: Vital Signs Temp Pulse Resp BP Pulse Ox 130/61 05/17/17 08:26 - REVIEWED ASSESSMENTS Nursing Assessment Reviewed: Yes Vitals Reviewed: Yes Progress - Results/Orders Results/Orders: pt significantly better after iv fluids and she admits w/ the stress she is not eating/drinking as usual. tingling is gone she has urinated and feels sig better she will drink 2/3 gatoraid and 1/3 water. ED Results Lab/Radiology - Lab Results Lab Results: Lab Results 06/12/17 18:20 Urine Color Yellow (YELLOW) Urine Appearance Cloudy H (CLEAR) Urine pH 7.0 (5.0 - 8.0) Ur Specific [place] 1.020 (1.010-1.030) Urine Protein 2+ mg/dL H mg/dL (NEGATIVE) Urine Ketones Negative mg/dL mg/dL (NEGATIVE) Urine Occult Blood Trace-intact H (NEGATIVE) Urine Nitrite Negative (NEGATIVE) Urine Bilirubin Negative (NEGATIVE) Urine Urobilinogen 0.2 Eu Eu (0.2-1.0) Ur Leukocyte Esterase Negative (NEGATIVE) Urine Glucose Negative mg/dL mg/dL (NEGATIVE) - Orders Orders: ED Orders Category Date Time Status Continuous EKG monitoring Q30M Care 06/12/17 18:48 Active Continuous Pulse Oximetry Q30M Care 06/12/17 18:[address] IV Lock 1T Care 06/12/17 18:48 Active CBC/PLATELET/DIFF Routine Lab 06/12/17 18:48 Received CKMB Stat Lab 06/12/17 18:48 Received CMP Routine Lab 06/12/17 18:48 Received CREATINE KINASE Routine Lab 06/12/17 18:48 Received TROPONIN I (cTnI) Stat Lab 06/12/17 18:48 Received UA MACRO DIP ONLY Routine Lab 06/12/17 18:20 Completed 0.9 % Sodium Chloride [Normal Saline] 1,000 ml Med 06/12/17 18:29 Discontinued IV .STK-MED 0.9 % Sodium Chloride [Normal Saline] 1,000 ml Med 06/12/17 18:30 Ordered IV Q6H Oxygen Daily Oxygen 06/12/17 19:00 Ordered EKG WITH COMPARISON Stat Ther 06/12/17 18:48 Ordered General Adult Physical Exam - PHYSICAL EXAM GENERAL APPEARANCE: mild distress EENT: eye inspection normal NECK: normal inspection, thyroid normal. No: thyromegaly, carotid bruit RESPIRATORY: no resp distress, chest non-tender, breath sounds normal CVS: reg rate & rhythm, heart sounds normal, equal pulses, no murmur ABDOMEN: soft, no organomegaly, non-tender BACK: other (chronic adriana kpain djd qnd dbulging disc) SKIN: warm/dry, normal color. No: cyanosis EXTREMITIES: non-tender, normal range of motion, no evidence of injury, no edema NEURO: oriented X3, motor nml, sensation nml, mood/affect nml Discharge Clincal Impression: tingling relieved by hydration-dehydrati, increase stress level dt husbands health, hx DM and lymphoma Referrals: Jennifer Lee, PRN [Primary Care Provider] - 2 Days Comments: home better nutrition and hydration--accompanied by son Condition: Good Disposition: 01 HOME, SELF-CARE Decision to Admit: NO Decision Time: 21:32
[2017-06-12 19:01] LABS: BASOPHILS % 0.6 (0.0-1.5); EOSINOPHILS % 1.2 % (0.0-6.8); MEAN CORPUSCULAR HEMOGLOBIN 31.9 pg (28.0-34.0); MEAN CORPUSCULAR VOLUME 99.1 fl (80.0-100.0); MONOCYTES % 5.5 % (0.0-11.0)
[2017-06-12 19:15] LABS: eGFR (Non-African) > 60
[2017-06-12 21:44] VITALS: BP 170/89
== END 2017-06-12 21:40 | disposition home or self-care (01) ==
LOC: ED 18:09
DX: E86.0 Dehydration (principal); F43.8 Other reactions to severe stress
CPT/HCPCS: 80053; 81002; 82550; 82553; 84484; 85025; 93005; J7030; 96360; 96361; 99283; S1016

== ENCOUNTER 2017-06-17 13:02 | Outpatient (CLI) | payer OTHER | END 2017-06-17 13:03 | LOC: POD 13:02 | PROVIDERS: ATTEND Podiatrist | DX: B35.1 Tinea unguium (principal); M79.674 Pain in right toe(s); M79.675 Pain in left toe(s) | CPT/HCPCS: 11721; G0463 ==

== ENCOUNTER 2017-08-27 07:03 | Outpatient (CLI) | payer OTHER ==
[2017-08-27 08:51] LABS: APPEARANCE,URINE CLEAR (CLEAR); COLOR,URINE YELLOW (YELLOW); OCCULT BLOOD,URINE NEGATIVE (NEGATIVE); PH URINE 6.5 (5.0 - 8.0); UROBILINOGEN URINE 0.2 Eu (0.2-1.0)
[2017-08-27 09:03] LABS: eGFR (African) > 60; eGFR (Non-African) > 60
== END 2017-08-27 07:05 ==
LOC: LAB 07:03
PROVIDERS: ATTEND Nurse Practitioner Family
DX: E78.2 Mixed hyperlipidemia (principal); E11.65 Type 2 diabetes mellitus with hyperglycemia; R03.0 Elevated blood-pressure reading, without diagnosis of hypertension; M81.0 Age-related osteoporosis without current pathological fracture
CPT/HCPCS: 80053; 80061; 81002; 82043; 82306; 83036; 84443

== ENCOUNTER → 2017-09-25 | Outpatient (CLI) | payer OTHER | LOC: LAB 09:22 | PROVIDERS: ATTEND Nurse Practitioner Family | DX: E67.3 Hypervitaminosis D (principal) | CPT/HCPCS: 36415; 82306 ==

== ENCOUNTER 2017-09-26 12:48 | Outpatient (CLI) | payer OTHER | END 2017-09-26 12:50 | LOC: POD 12:48 | PROVIDERS: ATTEND Podiatrist | DX: B35.1 Tinea unguium (principal); M79.674 Pain in right toe(s); M79.675 Pain in left toe(s) | CPT/HCPCS: 11721; G0463 ==

== ENCOUNTER 2017-10-29 09:26 | Outpatient (CLI) | payer OTHER ==
[2017-10-29] MEDS ORDERED: SALINE FLUSH 10 ML DISP.SYRIN IVF ONE (09:30)
[2017-10-29] MEDS ORDERED: HEPARIN SODIUM 500 UNIT/5 ML DISP.SYRIN IV ONE (09:30)
== END 2017-10-29 09:27 ==
LOC: INF 09:26
PROVIDERS: ATTEND Internal Medicine Hematology & Oncology
DX: C82.18 Follicular lymphoma grade II, lymph nodes of multiple sites (principal)
CPT/HCPCS: 96523; J1642

== ENCOUNTER 2017-12-18 06:59 | Outpatient (CLI) | payer OTHER ==
[2017-12-18] MEDS ORDERED: HEPARIN SODIUM 500 UNIT/5 ML DISP.SYRIN IV ONE (07:23)
[2017-12-18 07:57] LABS: APPEARANCE,URINE CLEAR (CLEAR); COLOR,URINE YELLOW (YELLOW); OCCULT BLOOD,URINE NEGATIVE (NEGATIVE); UROBILINOGEN URINE 0.2 Eu (0.2-1.0)
[2017-12-18 08:06] LABS: EOSINOPHILS % 2.3 % (0.0-6.8); MEAN CORPUSCULAR HEMOGLOBIN 32.3 pg (28.0-34.0); MONOCYTES % 9.1 % (0.0-11.0)
[2017-12-18 08:07] LABS: BASOPHILS % 0.5 (0.0-1.5); NEUTROPHILS # 2.2 # k/uL (1.4-7.7)
[2017-12-18 18:15] LABS: TOTAL PROTEIN 6.3 g/dL (6.0-8.5)
== END 2017-12-18 07:02 ==
LOC: LAB 06:59
PROVIDERS: ATTEND Nurse Practitioner Family
DX: E11.65 Type 2 diabetes mellitus with hyperglycemia (principal); I10 Essential (primary) hypertension; E78.2 Mixed hyperlipidemia; E03.4 Atrophy of thyroid (acquired)
CPT/HCPCS: 80053; 80061; 81002; 82043; 83036; 84443; 85025

== ENCOUNTER 2018-01-13 08:42 | Outpatient (CLI) | payer OTHER ==
--- NOTE | 2018-01-13 09:38 | Diagnostic Imaging Report ---
Miranda Pereira [facility] [address] [facility] [address] [address] Report Submission Date: Jan 13, 2018 9:27:02 AM AGING DEPARTMENT SUPERVISOR Patient Study Name: MELVA URIAS Date: Jan 13, 2018 8:45:23 AM AGING DEPARTMENT SUPERVISOR Modality Type: DX Gender: F Description: SHOULDER : 32 Institution: [facility] Physician: Miranda Pereira Left shoulder History: Pain Three views of the left shoulder demonstrate a small screw associated with prior rotator cuff repair. Otherwise, no osseous abnormalities are noted. There are no significant degenerative findings. The acromioclavicular joint is intact. Impression: Small screw associated with prior rotator cuff repair. Otherwise, no osseous abnormality. Electronically signed on Jan 13, 2018 9:27:02 AM AGING DEPARTMENT SUPERVISOR by: Cristina ZHENG
== END 2018-01-13 08:43 ==
LOC: RAD 08:42
PROVIDERS: ATTEND Family Medicine Sports Medicine
DX: M25.512 Pain in left shoulder (principal); Z98.890 Other specified postprocedural states
CPT/HCPCS: 73030

== ENCOUNTER 2018-01-24 13:25 | Emergency (ER) | payer OTHER ==
[2018-01-24] MEDS ORDERED: ORPHENADRINE CITRATE 60 MG/2 ML ML IM ONE (13:59)
--- NOTE | 2018-01-24 14:03 | ED Physician Documentation ---
Low Back Pain - HISTORIAN Historian: patient - HPI Stated Complaint: low back pain Chief Complaint: Low Back Pain/ Injury Additional Information: Patient presents to ED with a 24 hour history of right low back pain radiating to right trochanter. She denies any injury. The pain is greatest with standing and walking. Pain is relieved with supine position. She has a history of back surgery 3 years ago. History: history of chronic pain:, back pain Onset: days ago (2) Duration: continues in ED Context: other (standing walking) Where: home Severity: moderate (6/10) Quality: burning, sharp Associated Symptoms: denies: fever, incontinence Worsened By:: upright position (walking) Relieved By: supine - ROS CONST: no problems CVS/RESP: denies: chest pain, shortness of breath EYES/ENT: none MS/SKIN/LYMPH: denies: neck pain, leg swelling Neuro/Psych: none - PAST HX Past History: back pain (with back surgery 3 years ago) Other History: other (right femur fracture ) Surgeries/Procedures: back surgery Allergies/Adverse Reactions: Allergies Allergy/AdvReac Type Severity Reaction Status Date / Time acyclovir Allergy Verified 11/07/16 17:47 amoxicillin [Amoxicillin] Allergy Verified 11/07/16 17:47 brimonidine tartrate Allergy Verified 11/07/16 17:47 [From Combigan] chlorpheniramine maleate Allergy Verified 05/17/17 08:06 [From Deconamine] ciprofloxacin [From Cipro] Allergy Verified 05/17/17 08:06 ciprofloxacin HCl Allergy Verified 05/17/17 08:06 [From Cipro] cyclobenzaprine HCl Allergy Verified 05/17/17 08:06 [From Flexeril] dicyclomine Allergy Verified 05/17/17 08:06 glimepiride [From Amaryl] Allergy Verified 05/17/17 08:06 metoclopramide HCl Allergy Verified 05/17/17 08:06 [From Reglan] Penicillins Allergy Verified 05/17/17 08:06 pregabalin [From Lyrica] Allergy Verified 05/17/17 08:06 prochlorperazine edisylate Allergy Verified 05/17/17 08:06 [From Compazine] prochlorperazine maleate Allergy Verified 05/17/17 08:06 [From Compazine] pseudoephedrine HCl Allergy Verified 05/17/17 08:06 [From Deconamine] thiethylperazine maleate Allergy Verified 05/17/17 08:06 [From Torecan] timolol maleate Allergy Verified 05/17/17 08:06 [From Combigan] Home Medications: Ambulatory Orders Medication Instructions Recorded Allopurinol [Zyloprim] 300 mg PO D 06/04/16 Calcium Carb 500/Vit D 200 1 each PO TID 06/04/16 [CALTRATE WITH VIT D] Calcium Carb 500Mg [Tums] 1,000 mg PO DAILY PRN 06/04/16 Enoxaparin Sodium [Lovenox] 40 mg SQ QD 06/04/16 Gabapentin 600 mg PO TID 06/04/16 Levothyroxine Sodium [Levoxyl] 88 mcg PO 0700 06/04/16 Metformin HCl [Glucophage] 1,[place] [address] 06/04/16 Mv-Min/FA/Vit K/Lycop/Lut/Zeax 1 each PO D 06/04/16 [Ocuvite Eye Plus Multi Tablet] Omeprazole [Prilosec] 40 mg PO D 06/04/16 Raloxifene HCl 60 mg PO D 06/04/16 Sennosides/Docusate Sodium 2 each PO HS PRN 06/04/16 [Docusate Sodium-Senna Tablet] oxyCODONE HCL/ACETAMINOPHEN 2 each PO Q4 PRN 06/04/16 [Percocet 5-325 mg Tablet] Polyethylene Glycol 3350 [Miralax] 17 gm PO 1100 PRN #30 powd.pack 06/19/16 Zolpidem Tartrate [Ambien] 5 mg PO HS PRN #20 tablet 06/19/16 Propylene Glycol/Peg 400/Pf 2 drop OP BID 11/07/16 [Systane 0.3-0.4% Eye Drops] Calcium Carbonate/Vitamin D3 1 each PO TID tablet 11/25/16 [Calcium 500 + Vit D 200 Tablet] Orphenadrine Citrate [Norflex] 100 mg PO BID #20 tab 01/24/18 - SOCIAL HX Smoking History: non-smoker Alcohol Use: none Drug Use: none - FAMILY HX Family History: none - VITAL SIGNS Vital Signs: Vital Signs Temp Pulse Resp BP Pulse Ox 98.7 F 80 16 144/65 97 01/24/18 14:21 01/24/18 14:21 01/24/18 14:21 01/24/18 14:21 01/24/18 14:21 - REVIEWED ASSESSMENTS Nursing Assessment Reviewed: Yes Vitals Reviewed: Yes ED Results Lab/Radiology - Radiology Radiology Impressions: Pelvis radiograph Clinical history low back pain Technique AP supine pelvis Findings: Lumbar fusion and laminectomies are present. The pelvic ring is intact. There is right hip compression screw. Anchors are present pubic bones there is hip degenerative arthritis. Impression: Compression screw in the right hip across an old healed fracture Intact pelvic ring Degenerative arthritis of the hips Pubic bone anchors Electronically signed on Jan 24, 2018 3:03:48 PM DATA DESIGNER by: James Bonner Lumbar spine Clinical history low back pain Technique AP lateral coned down Findings: There is lumbar fusion extending from L2 to S1 there is aortoiliac vascular calcification. . Disc space narrowing is present at L34,L45 and L5/S1. Laminectomies are present at L3/L4 and L5. A levoscoliosis present. Impression: L2 to L5 fusion. Multiple laminectomies Levoscoliosis Heavy aortoiliac vascular calcification . No fracture or lytic change Electronically signed on Jan 24, 2018 3:09:48 PM DATA DESIGNER by: James Bonner - Orders Orders: ED Orders Category Date Time Status L SPINE 2 OR 3 VIEWS [RAD] Stat Exams 01/24/18 Ordered PELVIS AP 1 OR 2 VIEWS [RAD] Stat Exams 01/24/18 Ordered UA W/MICRO IF INDICATED Routine Lab 01/24/18 14:00 Ordered Orphenadrine Citrate [Norflex] Med 01/24/18 13:59 Discontinued 60 mg IM NOW ONE Low Back Pain/Injury - Physical Exam General Appearance: no acute distress, alert EENT: PEPITO Neck: non-tender Resp/CVS: chest non-tender, breath sounds nml, heart sounds nml Abdomen: non-tender Back: muscle spasm (right low back/gluteal region). No: vertebral point- tendernes, CVA tenderness Straight Leg Raising: Negative Left, Negative Right Neuro/Psych: oriented x3, motor nml, sensation nml Skin: warm/dry, normal color Extremities: non-tender, normal range of motion, no edema Discharge Clincal Impression: Low back pain Qualifiers: Chronicity: acute Back pain laterality: right Sciatica presence: without sciatica Qualified Code(s): M54.5 - Low back pain Prescriptions: Orphenadrine Citrate [Norflex] 100 mg PO BID #20 tab Referrals: Jennifer Lee, PRN [Primary Care Provider] - 2 Days Additional Instructions: 1. May increase Tramadol 50mg to 2 tabs every 8 hours as needed for pain 2. Do not take Meloxicam and Ibuprofen at the same time 3. Apply Ice/heat to affected area as needed. 4. Follow up with PCP within 1 week. Condition: Stable Disposition: 01 HOME, SELF-CARE Decision to Admit: NO Date of Decison to Admit: 01/24/18 Decision Time: 15:25
[2018-01-24 15:47] VITALS: BP 134/66
--- NOTE | 2018-01-24 16:23 | Diagnostic Imaging Report ---
TAISHA RUSSELL [facility] [address] [facility] [address] [place] [address]. [address] Report Submission Date: Jan 24, 2018 3:09:48 PM SUBSTATION ENGINEER Patient Study Name: MELVA URIAS Date: Jan 24, 2018 2:37:24 PM SUBSTATION ENGINEER Modality Type: DX Gender: F Description: SPINE : 32 Institution: [facility] Physician: TAISHA RUSSELL Lumbar spine Clinical history low back pain Technique AP lateral coned down Findings: There is lumbar fusion extending from L2 to S1 there is aortoiliac vascular calcification. . Disc space narrowing is present at L34,L45 and L5/S1. Laminectomies are present at L3/L4 and L5. A levoscoliosis present. Impression: L2 to L5 fusion. Multiple laminectomies Levoscoliosis Heavy aortoiliac vascular calcification . No fracture or lytic change Electronically signed on Jan 24, 2018 3:09:48 PM SUBSTATION ENGINEER by: James ZHENG
--- NOTE | 2018-01-24 16:23 | Diagnostic Imaging Report ---
TAISHA RUSSELL [facility] [address] [facility] [address] [place], [place]. [address] Report Submission Date: Jan 24, 2018 3:03:48 PM FIRER ELECTRIC LOCOMOTIVE Patient Study Name: MELVA URIAS Date: Jan 24, 2018 2:32:22 PM FIRER ELECTRIC LOCOMOTIVE Modality Type: DX Gender: F Description: PELVIS : 32 Institution: [facility] Physician: TAISHA RUSSELL Pelvis radiograph Clinical history low back pain Technique AP supine pelvis Findings: Lumbar fusion and laminectomies are present. The pelvic ring is intact. There is right hip compression screw. Anchors are present pubic bones there is hip degenerative arthritis. Impression: Compression screw in the right hip across an old healed fracture Intact pelvic ring Degenerative arthritis of the hips Pubic bone anchors Electronically signed on Jan 24, 2018 3:03:48 PM FIRER ELECTRIC LOCOMOTIVE by: James ZHENG
== END 2018-01-24 15:47 | disposition home or self-care (01) ==
LOC: ED 13:25
DX: M54.5 Low back pain (principal)
CPT/HCPCS: 72100; 72170; 96372; 99283; 99284; J2360

== ENCOUNTER 2018-02-02 08:30 | Outpatient (CLI) | payer OTHER ==
[~2018-02-02 08:30] MED LIST changes: -LACTATED RINGERS 1,000 ML IV.SOLN IV ONE; -Lidocaine 1% 20ml (SOUTH OMNI) ONE; -PROPOFOL 200 MG/20 ML VIAL IV ONE
== END 2018-02-02 09:48 ==
LOC: INF 08:30
PROVIDERS: ATTEND Internal Medicine Hematology & Oncology
DX: C82.90 Follicular lymphoma, unspecified, unspecified site (principal)
CPT/HCPCS: 96523; J1642

== ENCOUNTER 2018-02-13 14:43 | Outpatient (CLI) | payer OTHER ==
[2018-02-13 15:15] LABS: MEAN CORPUSCULAR HEMOGLOBIN 30.3 pg (28.0-34.0)
[2018-02-13 15:16] LABS: BASOPHILS % 0.6 (0.0-1.5); MONOCYTES % 8.5 % (0.0-11.0); NEUTROPHILS # 3.1 # k/uL (1.4-7.7)
== END 2018-02-13 14:50 ==
LOC: LAB 14:43
PROVIDERS: ATTEND Family Medicine Sports Medicine
DX: R53.83 Other fatigue (principal); R53.81 Other malaise; M89.9 Disorder of bone, unspecified; M94.9 Disorder of cartilage, unspecified
CPT/HCPCS: 36415; 82306; 85025

== ENCOUNTER 2018-04-10 09:21 | Outpatient (CLI) | payer OTHER ==
--- NOTE | 2018-04-11 04:14 | Diagnostic Imaging Report ---
BATSHEVA CARPENTER ([place]) - OP [facility] [address] [facility] [address] [place], [place]. [address] Report Submission Date: Apr 10, 2018 2:16:41 PM KILN TESTER Patient Study Name: MELVA URIAS Date: Apr 10, 2018 9:28:45 AM KILN TESTER Modality Type: DX Gender: F Description: ABD COMPLETE : 32 Institution: [facility] Physician: BATSHEVA CARPENTER ([place]) - OP Obstructive series History: Nausea Flat and upright views of the abdomen were obtained which demonstrate cardiomegaly. Lung bases are clear. No free air is noted. Findings are present of an extensive lumbar fusion. No abnormally dilated loops of large or small bowel are noted. There is mildly increased stool in the colon. Rounded calcifications are present in the pelvis bilaterally, consistent with phleboliths. Impression: Cardiomegaly. No free air. Nonobstructive bowel gas pattern. Extensive lumbar fusion. Pelvic phleboliths. Electronically signed on Apr 10, 2018 2:16:41 PM KILN TESTER by: Cristina ZHENG
== END 2018-04-10 09:45 ==
LOC: RAD 09:21
PROVIDERS: ATTEND Nurse Practitioner Family
DX: R11.0 Nausea (principal); R10.9 Unspecified abdominal pain; I51.7 Cardiomegaly; I87.8 Other specified disorders of veins
CPT/HCPCS: 74019

== ENCOUNTER 2018-04-30 10:08 | Outpatient (CLI) | payer OTHER ==
--- NOTE | 2018-05-01 04:58 | Diagnostic Imaging Report ---
BATSHEVA CARPENTER ([place]) - OP [facility] [address] [facility] [address] Report Submission Date: Apr 30, 2018 1:19:45 PM CDT Patient Study Name: MELVA URIAS Date: Apr 30, 2018 10:17:54 AM CDT Modality Type: DX Gender: F Description: ABD COMPLETE : 31 Institution: [facility] Physician: BATSHEVA CARPENTER ([place]) - OP Examination: Obstruction series History: Abdominal discomfort Findings: 4 views obtained of the abdomen. No abnormal dilation of the large or small bowel. Moderate stool throughout the large bowel. No suspicious calcification projecting over the renal fossa or the lower pelvic region. Extensive lumbar fixation hardware. Right hip fixation hardware. Osteopenia and degenerative changes. Lumbar curvature to the left. Impression: Moderate large bowel stool. No obstruction. Electronically signed on Apr 30, 2018 1:19:45 PM CDT by: Rome ZHENG
== END 2018-04-30 10:10 ==
LOC: RAD 10:08
PROVIDERS: ATTEND Nurse Practitioner Family
DX: R10.9 Unspecified abdominal pain (principal)
CPT/HCPCS: 74019

== ENCOUNTER 2018-05-05 08:30 | Outpatient (CLI) | payer OTHER | END 2018-05-05 09:00 | LOC: LAB 08:30 | PROVIDERS: ATTEND Internal Medicine Gastroenterology | DX: K29.70 Gastritis, unspecified, without bleeding (principal) | CPT/HCPCS: 36415; 82784; 83516 ==

== ENCOUNTER 2018-05-05 14:12 | Emergency (ER) | payer OTHER ==
[2018-05-05 14:56] LABS: eGFR (Non-African) > 60
--- NOTE | 2018-05-05 15:36 | ED Physician Documentation ---
General Adult - HISTORIAN Historian: patient - HPI Stated Complaint: dehydration Chief Complaint: General Adult Further Comments: yes (87 year old female patient presents with complaint of "[facility] told me I look dehydrated". Patient reports drinking 1 bottle of magnesium citrate 2 days ago.) - ROS CONST: no problems EYES/ENT: none CVS/RESP: none GI/: none MS/SKIN/LYMPH: none NEURO/PSYCH: denies: headache, fainting, dizziness, tingling, numbness, diff iculty walking, difficulty with speech, anxiety, depression, other - PAST HX Past History: hypertension, other (GERD, lymphoma (remission), OA, hypothyroidism, ) Other History: diabetes Type 2 Surgeries/Procedures: hysterectomy, other (appendectomy, cataart removal, Rt total hip, total knee, tonsillectomy, ) Allergies/Adverse Reactions: Allergies Allergy/AdvReac Type Severity Reaction Status Date / Time acyclovir Allergy Verified 05/05/18 15:25 amoxicillin [Amoxicillin] Allergy Verified 05/05/18 15:25 brimonidine tartrate Allergy Verified 05/05/18 15:25 [From Combigan] chlorpheniramine maleate Allergy Verified 05/05/18 15:25 [From Deconamine] ciprofloxacin [From Cipro] Allergy Verified 05/05/18 15:25 ciprofloxacin HCl Allergy Verified 05/05/18 15:25 [From Cipro] cyclobenzaprine HCl Allergy Verified 05/05/18 15:25 [From Flexeril] dicyclomine Allergy Verified 05/05/18 15:25 glimepiride [From Amaryl] Allergy Verified 05/05/18 15:25 metoclopramide HCl Allergy Verified 05/05/18 15:25 [From Reglan] Penicillins Allergy Verified 05/05/18 15:25 pregabalin [From Lyrica] Allergy Verified 05/05/18 15:25 prochlorperazine edisylate Allergy Verified 05/05/18 15:25 [From Compazine] prochlorperazine maleate Allergy Verified 05/05/18 15:25 [From Compazine] pseudoephedrine HCl Allergy Verified 05/05/18 15:25 [From Deconamine] thiethylperazine maleate Allergy Verified 05/05/18 15:25 [From Torecan] timolol maleate Allergy Verified 05/05/18 15:25 [From Alexander] Home Medications: Ambulatory Orders Medication Instructions Recorded Allopurinol [Zyloprim] 300 mg PO D 06/04/16 Calcium Carb 500/Vit D 200 1 each PO TID 06/04/16 [CALTRATE WITH VIT D] Calcium Carb 500Mg [Tums] 1,000 mg PO DAILY PRN 06/04/16 Enoxaparin Sodium [Lovenox] 40 mg SQ QD 06/04/16 Gabapentin 600 mg PO TID 06/04/16 Levothyroxine Sodium [Levoxyl] 88 mcg PO 0700 06/04/16 Metformin HCl [Glucophage] 1,[place] [address] 06/04/16 Mv-Min/FA/Vit K/Lycop/Lut/Zeax 1 each PO D 06/04/16 [Ocuvite Eye Plus Multi Tablet] Omeprazole [Prilosec] 40 mg PO D 06/04/16 Raloxifene HCl 60 mg PO D 06/04/16 Sennosides/Docusate Sodium 2 each PO HS PRN 06/04/16 [Docusate Sodium-Senna Tablet] oxyCODONE HCL/ACETAMINOPHEN 2 each PO Q4 PRN 06/04/16 [Percocet 5-325 mg Tablet] Polyethylene Glycol 3350 [Miralax] 17 gm PO 1100 PRN #30 powd.pack 06/19/16 Zolpidem Tartrate [Ambien] 5 mg PO HS PRN #20 tablet 06/19/16 Propylene Glycol/Peg 400/Pf 2 drop OP BID 11/07/16 [Systane 0.3-0.4% Eye Drops] Calcium Carbonate/Vitamin D3 1 each PO TID tablet 11/25/16 [Calcium 500 + Vit D 200 Tablet] Orphenadrine (Nf) [Norflex] 100 mg PO BID #20 tab 01/24/18 - SOCIAL HX Smoking History: non-smoker - FAMILY HX Family History: No - VITAL SIGNS Vital Signs: Vital Signs Temp Pulse Resp BP Pulse Ox 97.5 F L 93 H 16 158/81 98 05/05/18 14:14 05/05/18 14:14 05/05/18 14:14 05/05/18 14:14 05/05/18 14:14 - REVIEWED ASSESSMENTS Nursing Assessment Reviewed: Yes Vitals Reviewed: Yes Progress - Progress Progress: normal exam and normal lab ED Results Lab/Radiology - Lab Results Lab Results: Lab Results 05/05/18 14:22 Sodium 134 mmol/L L mmol/L (136-145) Potassium 3.9 mmol/L mmol/L (3.5-5.1) Chloride 95 mmol/L L mmol/L (98-107) Carbon Dioxide 26 mmol/L mmol/L (22-30) BUN 15 mg/dL mg/dL (7-17) Creatinine 0.78 mg/dL mg/dL (0.52-1.04) Est GFR ( Amer) > 60 (60 - ) Est GFR (Non-Af Amer) > 60 (60 - ) Glucose 186 mg/dL H mg/dL (74-106) Calcium 8.7 mg/dL mg/dL (8.4-10.2) - Orders Orders: ED Orders Category Date Time Status BMP Stat Lab 05/05/18 14:22 Completed General Adult Physical Exam - PHYSICAL EXAM GENERAL APPEARANCE: [id number] N RESPIRATORY: no resp distress, chest non-tender, breath sounds normal CVS: reg rate & rhythm, heart sounds normal, equal pulses, no murmur, no gallop, PMI nml, no JVD, no friction rub, 24 ABDOMEN: soft, no organomegaly, normal bowel sounds, no abdominal bruit, no distension BACK: normal inspection, no CVA tenderness SKIN: normal color, warm/dry, NR, INT, PAL, DR EXTREMITIES: non-tender, normal range of motion, no evidence of injury, no edema, J, PROMOTIONS FIRM ACCOUNTS MANAGER NEURO: oriented X3, CN's nml as tested, motor nml, sensation nml, mood/affect nml Discharge Clincal Impression: Normal exam Condition: Stable Disposition: 01 HOME, SELF-CARE Decision to Admit: NO Decision Time: 15:35
[2018-05-05 15:51] VITALS: BP 145/56
[2018-05-05 18:26] LABS: APPEARANCE,URINE CLEAR (CLEAR); COLOR,URINE YELLOW (YELLOW); OCCULT BLOOD,URINE NEGATIVE (NEGATIVE); UROBILINOGEN URINE 0.2 Eu (0.2-1.0)
== END 2018-05-05 15:48 | disposition home or self-care (01) ==
LOC: ED 14:12
DX: Z04.89 Encounter for examination and observation for other specified reasons (principal)
CPT/HCPCS: 80048; 81002; 99282; 99283

== ENCOUNTER 2018-05-25 12:52 | Outpatient (CLI) | payer OTHER | END 2018-05-25 13:00 | LOC: OUT 12:52 | PROVIDERS: ATTEND Internal Medicine Gastroenterology | DX: K90.0 Celiac disease (principal); R14.0 Abdominal distension (gaseous); K59.00 Constipation, unspecified; R63.0 Anorexia; K21.9 Gastro-esophageal reflux disease without esophagitis | CPT/HCPCS: 97802 ==

== ENCOUNTER 2018-06-19 14:12 | Inpatient (IN) | payer OTHER ==
[2018-06-19 14:39] VITALS: BMI 18.0
[2018-06-19] MEDS ORDERED: HYDROcodone /APAP 5/325 1 EACH TABLET PO PRN (15:35)
[2018-06-19] MEDS ORDERED: BACLOFEN 10 MG TABLET PO PRN (15:40)
--- NOTE | 2018-06-19 15:51 | History and Physical Report ---
History of Present Illnes - History of Present Illness Reason for Visit: gait disturbance History of Present Illness: Patient is an 87-year-old female who presents to the ER from [facility] via [facility] with c/o severe lower lumbar pain- bilateral radiating into the right hip. She states that her pain has been increasing over the last 2 months. She has been taking Vicodin for pain as needed (she filled a script in March and still has some in the bottle). Her PCP started her on Baclofen 10 mg on 06/15/18 but she states that it makes her too drowsy. She had severe back pain prior to bed last night so she took a Vicodin and Baclofen and was unable to sleep. This morning when she woke up she was not able to move without experiencing severe pain in her back. She is not able to sit up, roll over, or stand without crying out in pain. Any movement of her legs cause her to scream out. She denies any recent falls or injury. Patient was subsequently admitted to observation care for further evaluation. At the 24 hours patient pain did improve some that she still continue to have a a lot of discomfort. Physical and occupational therapy with consulted. It was felt that the patient was going to be a fall risk and was felt that she would benefit from some skilled therapy. Patient was subsequently admitted to SNF for further rehab services. 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: Peripheral neuropathy (due to diabetes) Gastrointestinal: GERD Heme/Onc: Other (lymphoma treated and in remission) Musculoskeletal: Osteoarthritis Endocrine: Diabetes (type 2), Hypothyroidism, Other (hyperuricemia) - Past Surgical History Past Surgical History: Appendectomy, Cataract Removal, Hysterectomy, Total Hip Replacement (right hip fracture with external fixation, ORIF distal right femur fracture), Total Knee Replacement (has had revision), Tonsillectomy, Other (spine surgery x2) - Past Family History Mother Family History: (85yo advanced age) Father Family History: CAD, (72yo) Brother 1 Family History: Cancer (lymphoma), (cancer) Brother 2 Family History: Cancer (colon), Brother 3 Family History: Cancer (brain), Brother 4 Family History: (advanced age) Brother 5 Family History: (2016) - Past Social History Smoke: No Alcohol: None Drugs: None Lives: With Family Domestic Violence: Negative - Health Maintenance Health Maintenance: Mammogram, DEXA (2017) Influenza Vaccine: No (patient refuses) Pneumonia Vaccine: No (patient refuses) Resuscitation Status: Resusciation Status Resuscitation Status Do Not Resuscitate - Unable to Obtain History Unable to Obtain: No Review of Systems - Review of Systems Constitutional: Weakness (generalized). negative: Fever, Chills Eyes: negative: vision change ENT: negative: Ear Pain, Ear Discharge, Nose Pain, Nose Discharge, Nose Congestion, Mouth Pain Respiratory: negative: Cough, Dry, Shortness of Breath, Hemoptysis, SOB with Excertion, Pleuritic Pain, Sputum, Wheezing Cardiovascular: negative: Chest Pain, Palpitations, Orthopnea Gastrointestinal: Nausea. negative: Vomiting, Abdominal Pain, Diarrhea, Const ipation, Melena, Hematochezia Genitourinary: negative: Dysuria, Frequency, Incontinence, Hematuria Musculoskeletal: Shoulder Pain, Back Pain Skin: negative: Rash Neurological: negative: Weakness, Numbness, Incoordination, Change in Speech, Confusion, Seizures - Medications/Allergies Allergies/Adverse Reactions: Allergies Allergy/AdvReac Type Severity Reaction Status Date / Time acyclovir Allergy Verified 06/18/18 06:03 amoxicillin [Amoxicillin] Allergy Verified 06/18/18 06:03 brimonidine tartrate Allergy Verified 06/18/18 06:03 [From Combigan] chlorpheniramine maleate Allergy Verified 06/18/18 06:03 [From Deconamine] ciprofloxacin [From Cipro] Allergy Verified 06/18/18 06:03 cyclobenzaprine HCl Allergy Verified 06/18/18 06:03 [From Flexeril] dicyclomine Allergy Verified 06/18/18 06:03 glimepiride [From Amaryl] Allergy Verified 06/18/18 06:03 metoclopramide HCl Allergy Verified 06/18/18 06:03 [From Reglan] Penicillins Allergy Verified 06/18/18 06:03 pregabalin [From Lyrica] Allergy Verified 06/18/18 06:03 prochlorperazine edisylate Allergy Verified 06/18/18 06:03 [From Compazine] pseudoephedrine HCl Allergy Verified 06/18/18 06:03 [From Deconamine] thiethylperazine maleate Allergy Verified 06/18/18 06:03 [From Torecan] timolol maleate Allergy Verified 06/18/18 06:03 [From Combigan] Current Inpatient Medications: Current Inpatient Medications Hydrocodone Bitart/Acetaminophen ([place] 5/325) each PO Q6H PRN PRN Reason: pain Allopurinol (Zyloprim) 300 mg PO DAILY [facility] Baclofen (Lioresal) 10 mg PO TID PRN PRN Reason: muscle spasms Calcium/Vitamin D (Oscal + D 500mg/200unit) 1 each PO TID CONOR Ergocalciferol (Vitamin D2) 50,000 unit PO WEEK [facility] Levothyroxine Sodium (Synthroid) 88 mcg PO 0700 [facility] Exam - Exam Vital Signs: Vital Signs (72 hours) 06/18/18 06/19/18 06/19/18 21:43 14:08 14:27 Temperature 98.8 F Pulse Rate [ 96 H Right] Respiratory 18 Rate Blood Pressure 136/90 Blood Pressure 137/64 [Left Arm] Blood Pressure 136/90 136/90 [Right Arm] O2 Sat by Pulse 94 Oximetry 06/19/18 14:34 Temperature 98.8 F Pulse Rate [ 96 H Right] Respiratory 18 Rate Blood Pressure Blood Pressure [Left Arm] Blood Pressure 136/90 [Right Arm] O2 Sat by Pulse 96 Oximetry General: Alert, Oriented to Person, Oriented to Place, Oriented to Time, Cooperative HEENT: Atraumatic, PERRLA, EOMI, Mouth Mucous membr. moist/[place], Nose Mucous membr. moist/[place] Neck: Normal Range of Motion Carotids: WNL Thyroid: WNL Lungs: Clear to auscultation, Normal air movement, Speaks full Sentences Cardiovascular: Regular rate, Normal S1, Normal S2, No murmurs Peripheral Pulses: intact and equal bialt Abdomen: Normal bowel sounds, Soft, No tenderness, No hepatospenomegaly, No masses Integumentary: Normal, [place], Warm, Dry Extremities: No clubbing, No cyanosis, No edema, Normal pulses, No tenderness/swelling, Other (tenderness to the ower back over the L5 S1 area, no jake abnl noted) Neurological: Normal gait, Normal speech, Strength Equal Bilat, Normal tone, Sensation intact, Cranial nerves 3-12 NL, Reflexes 2+ Psych/Mental Status: Mental status NL, Mood NL, Appropriate Affect, Intact Judgment Assessment/Plan - Assessment/Plan (1) Acute exacerbation of chronic low back pain Status: Acute Current Visit: No (2) Gait disturbance Status: Acute Current Visit: No (3) Diabetes type 2, controlled Status: Chronic Current Visit: No Qualifiers: Diabetes mellitus chcf insulin use: without buttermaker continuous churn use Diabetes mellitus complication status: without complication Qualified Code(s): E11.9 - Type 2 diabetes mellitus without complications (4) Hyperuricemia Status: Chronic Current Visit: No (5) Peripheral neuropathy Status: Chronic Current Visit: No VTE Assessment - RISK FACTOR SCORE VTE RISK FACTOR SCORES: AGE OVER 60 YEARS - RISK VTE LOW RISK: SCORE OF 1 OR LESS (RISK PROXIMAL DVT 0.4%) NO PROPHYLAXIS NEEDED
--- NOTE | 2018-06-19 16:21 | Discharge Summary ---
Discharge Summary - Discharge [facility] Admission Date: 06/18/18 (Observation) Discharge Date: 06/19/18 (SNF) History of Present Illness: Patient is an 87-year-old female who presents to the ER from [facility] via [facility] with c/o severe lower lumbar pain- bilateral radiating into the right hip. She states that her pain has been increasing over the last 2 months. She has been taking Vicodin for pain as needed (she filled a script in March and still has some in the bottle). Her PCP started her on Baclofen 10 mg on 06/15/18 but she states that it makes her too drowsy. She had severe back pain prior to bed last night so she took a Vicodin and Baclofen and was unable to sleep. This morning when she woke up she was not able to move without experiencing severe pain in her back. She is not able to sit up, roll over, or stand without crying out in pain. Any movement of her legs cause her to scream out. She denies any recent falls or injury. Patient was subsequently admitted to observation care for further evaluation. At the 24 hours patient pain did improve some that she still continue to have a a lot of discomfort. Physical and occupational therapy with consulted. It was felt that the patient was going to be a fall risk and was felt that she would benefit from some skilled therapy. Patient was subsequently admitted to SNF for further rehab services. Home Medications: Ambulatory Orders Medication Instructions Recorded Allopurinol [Zyloprim] 300 mg PO D 06/04/16 Calcium Carb 500/Vit D 200 1 each PO TID 06/04/16 [CALTRATE WITH VIT D] Calcium Carb 500Mg [Tums] 1,000 mg PO DAILY PRN 06/04/16 Enoxaparin Sodium [Lovenox] 40 mg SQ QD 06/04/16 Gabapentin 600 mg PO TID 06/04/16 Levothyroxine Sodium [Levoxyl] 88 mcg PO 0700 06/04/16 Mv-Min/FA/Vit K/Lycop/Lut/Zeax 1 each PO D 06/04/16 [Ocuvite Eye Plus Multi Tablet] Omeprazole [Prilosec] 40 mg PO D 06/04/16 Raloxifene HCl 60 mg PO D 06/04/16 Sennosides/Docusate Sodium 2 each PO HS PRN 06/04/16 [Docusate Sodium-Senna Tablet] metFORMIN HCl [Glucophage] 1,[place] [address] 06/04/16 oxyCODONE HCL/ACETAMINOPHEN 2 each PO Q4 PRN 06/04/16 [Percocet 5-325 mg Tablet] Polyethylene Glycol 3350 [Miralax] 17 gm PO 1100 PRN #30 powd.pack 06/19/16 Zolpidem Tartrate [Ambien] 5 mg PO HS PRN #20 tablet 06/19/16 Propylene Glycol/Peg 400/Pf 2 drop OP BID 11/07/16 [Systane 0.3-0.4% Eye Drops] Calcium Carbonate/Vitamin D3 1 each PO TID tablet 11/25/16 [Calcium 500 + Vit D 200 Tablet] Baclofen [Liorasal] 1 tab PO TID 06/18/18 Consultations this Visit: None Procedures this Visit: None Allergies/Adverse Reactions: Allergies Allergy/AdvReac Type Severity Reaction Status Date / Time acyclovir Allergy Verified 06/18/18 06:03 amoxicillin [Amoxicillin] Allergy Verified 06/18/18 06:03 brimonidine tartrate Allergy Verified 06/18/18 06:03 [From Combigan] chlorpheniramine maleate Allergy Verified 06/18/18 06:03 [From Deconamine] ciprofloxacin [From Cipro] Allergy Verified 06/18/18 06:03 cyclobenzaprine HCl Allergy Verified 06/18/18 06:03 [From Flexeril] dicyclomine Allergy Verified 06/18/18 06:03 glimepiride [From Amaryl] Allergy Verified 06/18/18 06:03 metoclopramide HCl Allergy Verified 06/18/18 06:03 [From Reglan] Penicillins Allergy Verified 06/18/18 06:03 pregabalin [From Lyrica] Allergy Verified 06/18/18 06:03 prochlorperazine edisylate Allergy Verified 06/18/18 06:03 [From Compazine] pseudoephedrine HCl Allergy Verified 06/18/18 06:03 [From Deconamine] thiethylperazine maleate Allergy Verified 06/18/18 06:03 [From Torecan] timolol maleate Allergy Verified 06/18/18 06:03 [From Combigan] Discharge Summary: Patient was subsequently admitted to observation care for further evaluation. At the 24 hours patient pain did improve some that she still continue to have a a lot of discomfort. Patient did developed some nausea vomiting did require some Zofran PO to help with that. Patient denied any diarrhea. Patient is not had any fever or chills. Bowel movements have been fairly normal. Patient denies any constipation.Physical and occupational therapy with consulted. It was felt that the patient was going to be a fall risk and was felt that she would benefit from some skilled therapy. Patient was subsequently admitted to SNF for further rehab services.Patient was discharged in stable condition. Patient was started on physical and occupational therapy which she did well to participate with. Patient back pain did gradually improve as well as her ability to ambulate. Patient did have severe scoliosis which was felt to be the cause of her back pain along with osteoarthritis. Patient did have some constipation problems during the skilled stay but was treated with MiraLAX with good results. Patient other chronic medical problems remain stable on her home medications. At the time to discharge patient was stable was felt that she could be continued with some physical therapy on an outpatient basis and was discharged back to [facility]. - Final Diagnosis (1) Acute exacerbation of chronic low back pain Problems: improved, Etiology is unclear at this time. Possible developing compression fracture versus acute exacerbation of osteoarthritis/disc disease. (2) Gait disturbance Problems: Patient is deemed to be a hypo risk at this time. (3) Diabetes type 2, controlled Problems: Stable on home medications. (4) Hyperuricemia Problems: Stable on home medications. (5) Peripheral neuropathy Problems: Stable on home medications.
[2018-06-19] MEDS: CALCIUM/VIT D 500MG/200 UNIT TABLET PO SCH (17:45)
[2018-06-20] MEDS ORDERED: HYDROcodone /APAP 5/325 1 EACH TABLET PO PRN (02:01)
[2018-06-20] MEDS ORDERED: HYDROcodone /APAP 5/325 1 EACH TABLET ONE (02:06)
[2018-06-20] MEDS: LEVOTHYROXINE SODIUM 88 MCG TABLET PO SCH (06:27)
[2018-06-20] MEDS: metFORMIN HCl 500 MG TABLET PO SCH (08:12)
[2018-06-20] MEDS: ALLOPURINOL 100 MG TABLET PO SCH (08:12)
[2018-06-20] MEDS: CALCIUM/VIT D 500MG/200 UNIT TABLET PO SCH ×3 (08:12→17:41)
[2018-06-20] MEDS: IBUPROFEN 400 MG TABLET PO PRN ×3 (09:08→22:32)
[2018-06-20] MEDS: GABAPENTIN 300 MG CAPSULE PO SCH ×2 (10:56→17:40)
[2018-06-20] MEDS: L. ACIDOPHILUS/LACTOBAC SPOR 1 EACH CAP PO SCH (20:50)
[2018-06-21] MEDS: HYDROcodone /APAP 5/325 1 EACH TABLET PO PRN ×2 (00:01→20:55)
[2018-06-21] MEDS: LEVOTHYROXINE SODIUM 88 MCG TABLET PO SCH (06:27)
[2018-06-21] MEDS: CALCIUM/VIT D 500MG/200 UNIT TABLET PO SCH ×4 (07:44→18:29)
[2018-06-21] MEDS: L. ACIDOPHILUS/LACTOBAC SPOR 1 EACH CAP PO SCH ×2 (07:45→20:59)
[2018-06-21] MEDS: GABAPENTIN 300 MG CAPSULE PO SCH ×3 (07:45→18:29)
[2018-06-21] MEDS: metFORMIN HCl 500 MG TABLET PO SCH (07:45)
[2018-06-21] MEDS: ALLOPURINOL 100 MG TABLET PO SCH (07:45)
[2018-06-21 07:47] LABS: eGFR (Non-African) > 60
[2018-06-21 07:50] LABS: SEGMENTED NEUTROPHILS % 45 % (39-79)
[2018-06-21 07:54] LABS: PLT EST. EST. AGREES W/PLT CT
[2018-06-21] MEDS: IBUPROFEN 400 MG TABLET PO PRN (12:06)
[2018-06-21] MEDS ORDERED: DEXTRAN OU PRN (12:24)
[2018-06-21] MEDS ORDERED: HYPROMELLOSE OU PRN (12:24)
[2018-06-21] MEDS ORDERED: OPTH OU PRN (12:24)
[2018-06-22] MEDS: HYDROcodone /APAP 5/325 1 EACH TABLET PO PRN ×3 (03:36→21:13)
[2018-06-22] MEDS: LEVOTHYROXINE SODIUM 88 MCG TABLET PO SCH (06:14)
[2018-06-22] MEDS: metFORMIN HCl 500 MG TABLET PO SCH (07:32)
[2018-06-22] MEDS: GABAPENTIN 300 MG CAPSULE PO SCH ×3 (08:15→17:20)
[2018-06-22] MEDS: CALCIUM/VIT D 500MG/200 UNIT TABLET PO SCH ×3 (08:15→17:20)
[2018-06-22] MEDS: L. ACIDOPHILUS/LACTOBAC SPOR 1 EACH CAP PO SCH ×2 (08:16→21:13)
[2018-06-22] MEDS: ALLOPURINOL 100 MG TABLET PO SCH (08:16)
[2018-06-23] MEDS: HYDROcodone /APAP 5/325 1 EACH TABLET PO PRN ×3 (05:12→21:37)
[2018-06-23] MEDS: LEVOTHYROXINE SODIUM 88 MCG TABLET PO SCH (05:47)
[2018-06-23] MEDS: metFORMIN HCl 500 MG TABLET PO SCH (07:32)
[2018-06-23] MEDS: CALCIUM/VIT D 500MG/200 UNIT TABLET PO SCH ×3 (08:39→16:59)
[2018-06-23] MEDS: ALLOPURINOL 100 MG TABLET PO SCH (08:39)
[2018-06-23] MEDS: L. ACIDOPHILUS/LACTOBAC SPOR 1 EACH CAP PO SCH ×2 (08:39→20:33)
[2018-06-23] MEDS: GABAPENTIN 300 MG CAPSULE PO SCH ×3 (08:39→16:59)
[2018-06-23] MEDS: IBUPROFEN 400 MG TABLET PO PRN ×2 (08:39→16:59)
[2018-06-24] MEDS: IBUPROFEN 400 MG TABLET PO PRN (02:03)
[2018-06-24] MEDS: LEVOTHYROXINE SODIUM 88 MCG TABLET PO SCH (06:27)
[2018-06-24] MEDS: metFORMIN HCl 500 MG TABLET PO SCH (06:28)
[2018-06-24] MEDS: HYDROcodone /APAP 5/325 1 EACH TABLET PO PRN (06:46)
[2018-06-24] MEDS ORDERED: HEPARIN SODIUM 500 UNIT/5 ML DISP.SYRIN IV ONE (08:26)
[2018-06-24] MEDS: GABAPENTIN 300 MG CAPSULE PO SCH (08:49)
[2018-06-24] MEDS: L. ACIDOPHILUS/LACTOBAC SPOR 1 EACH CAP PO SCH (08:49)
[2018-06-24] MEDS: ALLOPURINOL 100 MG TABLET PO SCH (08:50)
[2018-06-24] MEDS: CALCIUM/VIT D 500MG/200 UNIT TABLET PO SCH (08:50)
[2018-06-24 10:29] VITALS: BP 109/47
[2018-06-26] MEDS ORDERED: ERGOCALCIFEROL (VITAMIN D2) 50,000 UNIT CAPSULE PO SCH (09:00)
--- NOTE | 2018-06-30 06:51 | Inpatient Progress Note ---
Subjective - Required Recertification Statement I anticipate X number of days because-include discharge plan: 5 days - Review of Systems Subjective: Patient seemed to be doing better today. Patient is not ambulating with assistance at this time with some pain but much better than what she has been previously. Patient is not had any balls. Patient other chronic medical problems appear to be stable. Patient is eating well. Patient is having bowel movements. Objective - Exam Vitals and I&O: Vital Signs Temp 99.1 F 06/24/18 08:30 Pulse 89 06/24/18 08:30 Resp 18 06/24/18 09:00 BP 109/47 06/24/18 08:30 Pulse Ox 99 06/24/18 08:30 General: Alert, Oriented to Person, Oriented to Place, Oriented to Time, Cooperative Lungs: Clear to auscultation, Normal air movement, Speaks full Sentences Cardiovascular: Regular rate, Normal S1, Normal S2, No murmurs Abdomen: Normal bowel sounds, Soft, No tenderness, No hepatospenomegaly, No masses Neurological: Normal speech, Strength Equal Bilat, Normal tone, Sensation intact. No: Normal gait (walking with a walker) Psych/Mental Status: Mental status NL, Mood NL, Appropriate Affect - Results Results: Laboratory Results WBC 7.20 K/ul (4.00-12.00) 06/21/18 05:35 RBC 3.74 M/ul (3.90-5.20) L 06/21/18 05:35 Hgb 11.4 g/dL (11.5-16.0) L 06/21/18 05:35 Hct 34.2 % (34.5-46.5) L 06/21/18 05:35 MCV 92.0 fl (80.0-100.0) 06/21/18 05:35 MCH 30.5 pg (28.0-34.0) 06/21/18 05:35 MCHC 33.3 g/dL (30.0-36.0) 06/21/18 05:35 RDW 14.4 % (11.3-14.3) H 06/21/18 05:35 Plt Count 229 K/mm3 (130-400) 06/21/18 05:35 Seg Neutrophils % 45 % (39-79) 06/21/18 05:35 Lymphocytes % 36 % (16-50) 06/21/18 05:35 Monocytes % 8 % (0-11) 06/21/18 05:35 Eosinophils % 4 % (0-7) 06/21/18 05:35 Reactive Lymphocytes 7 % (0-5) H 06/21/18 05:35 Platelet Estimate Est. agrees w/plt ct 06/21/18 05:35 RBC Morph Comment Normal (NORMAL) 06/21/18 05:35 Sodium 130 mmol/L (137-145) L 06/21/18 05:35 Potassium 4.0 mmol/L (3.5-5.1) 06/21/18 05:35 Chloride 97 mmol/L (98-107) L 06/21/18 05:35 Carbon Dioxide 26 mmol/L (22-30) 06/21/18 05:35 BUN 25 mg/dL (7-17) H 06/21/18 05:35 Creatinine 0.68 mg/dL (0.52-1.04) 06/21/18 05:35 Estimated Creat Clear 52 06/21/18 05:35 Est GFR ( Amer) > 60 (60-) 06/21/18 05:35 Est GFR (Non-Af Amer) > 60 (60-) 06/21/18 05:35 Glucose 138 mg/dL (74-106) H 06/21/18 05:35 Calcium 9.9 mg/dL (8.4-10.2) 06/21/18 05:35 Total Bilirubin 0.2 mg/dL (0.2-1.3) 06/21/18 05:35 AST 35 U/L (15-46) 06/21/18 05:35 ALT 17 U/L (0-35) 06/21/18 05:35 Alkaline Phosphatase 81 U/L (38-126) 06/21/18 05:35 Total Protein 6.2 g/dL (6.3-8.2) L 06/21/18 05:35 Albumin 3.3 g/dL (3.5-5.0) L 06/21/18 05:35 Assessment/Plan - Assessment/Plan (1) Acute exacerbation of chronic low back pain Status: Acute Assessment: improved (2) Gait disturbance Status: Acute Assessment: improved (3) Diabetes type 2, controlled Status: Chronic Qualifiers: 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
== END 2018-06-24 10:20 | disposition home or self-care (01) | DRG 552 ==
LOC: SOUTH 14:12
PROVIDERS: ADMIT Family Medicine; ATTEND Family Medicine
DX: M54.5 Low back pain (principal); M41.9 Scoliosis, unspecified; G89.29 Other chronic pain; E11.42 Type 2 diabetes mellitus with diabetic polyneuropathy; Z66 Do not resuscitate; K21.9 Gastro-esophageal reflux disease without esophagitis; R26.89 Other abnormalities of gait and mobility; K59.00 Constipation, unspecified; M19.90 Unspecified osteoarthritis, unspecified site; E03.9 Hypothyroidism, unspecified; E79.0 Hyperuricemia without signs of inflammatory arthritis and tophaceous disease; Z90.49 Acquired absence of other specified parts of digestive tract; Z96.659 Presence of unspecified artificial knee joint; Z91.81 History of falling; Z96.641 Presence of right artificial hip joint; Z98.49 Cataract extraction status, unspecified eye; Z82.49 Family history of ischemic heart disease and other diseases of the circulatory system; Z80.0 Family history of malignant neoplasm of digestive organs; Z80.7 Family history of other malignant neoplasms of lymphoid, hematopoietic and related tissues; Z80.8 Family history of malignant neoplasm of other organs or systems; Z88.1 Allergy status to other antibiotic agents; Z88.0 Allergy status to penicillin; Z88.8 Allergy status to other drugs, medicaments and biological substances; Z79.890 Hormone replacement therapy; Z79.899 Other long term (current) drug therapy; Z85.79 Personal history of other malignant neoplasms of lymphoid, hematopoietic and related tissues
CPT/HCPCS: 80053; 85025; 99221; A9270-GY; J1642

== ENCOUNTER 2018-08-14 09:36 | Outpatient (CLI) | payer OTHER ==
[2018-08-14 09:59] LABS: BASOPHILS % 0.5 % (0.0-1.5); NEUTROPHILS # 6.2 # k/uL (1.4-7.7)
== END 2018-08-14 09:38 ==
LOC: LAB 09:36
PROVIDERS: ATTEND Nurse Practitioner Family
DX: R71.0 Precipitous drop in hematocrit (principal)
CPT/HCPCS: 36415; 85025

== ENCOUNTER 2018-08-17 08:43 | Outpatient (CLI) | payer OTHER ==
[2018-08-17 09:09] LABS: BASOPHILS % 0.6 % (0.0-1.5); NEUTROPHILS # 6.2 # k/uL (1.4-7.7)
== END 2018-08-17 08:44 ==
LOC: LAB 08:43
PROVIDERS: ATTEND Nurse Practitioner Family
DX: R71.0 Precipitous drop in hematocrit (principal)
CPT/HCPCS: 36415; 85025

== ENCOUNTER 2018-08-24 08:31 | Outpatient (CLI) | payer OTHER ==
[2018-08-24 08:47] LABS: BASOPHILS % 0.5 % (0.0-1.5); NEUTROPHILS # 6.9 # k/uL (1.4-7.7)
== END 2018-08-24 08:33 ==
LOC: LAB 08:31
PROVIDERS: ATTEND Nurse Practitioner Family
DX: R71.0 Precipitous drop in hematocrit (principal)
CPT/HCPCS: 36415; 85025

== ENCOUNTER 2018-09-07 08:17 | Outpatient (CLI) | payer OTHER ==
[2018-09-07 08:29] LABS: BASOPHILS % 0.4 % (0.0-1.5); NEUTROPHILS # 3.5 # k/uL (1.4-7.7)
== END 2018-09-07 08:19 ==
LOC: LAB 08:17
PROVIDERS: ATTEND Nurse Practitioner Family
DX: R11.0 Nausea (principal)
CPT/HCPCS: 36415; 85025

== ENCOUNTER 2018-10-25 13:33 | Emergency (ER) | payer OTHER ==
--- NOTE | 2018-10-25 14:13 | ED Physician Documentation ---
General Adult - HISTORIAN Historian: patient - HPI Stated Complaint: pain at surgery site Chief Complaint: General Adult Additional Information: Patient presents to ED with pain a incision site. Patient states she had nerve stimulator placed on Friday at [place]. Today the pain at the incision site is more intense than yesterday. She is taking Bactrim twice daily and hydrocodone twice daily. Patient called surgeon distribution associate and was directed to the nearest ER. She denies fever, chills, drainage from incision site. Onset: days ago (2) Timing: still present, worse Severity: moderate - ROS CONST: denies: fever EYES/ENT: denies: problems with vision CVS/RESP: denies: chest pain, shortness of breath GI/: denies: vomiting, nausea MS/SKIN/LYMPH: none NEURO/PSYCH: denies: headache - PAST HX Past History: other (chronic back pain) Other History: none Surgeries/Procedures: none Allergies/Adverse Reactions: Allergies Allergy/AdvReac Type Severity Reaction Status Date / Time acyclovir Allergy Verified 10/25/18 14:10 amoxicillin [Amoxicillin] Allergy Verified 10/25/18 14:10 brimonidine tartrate Allergy Verified 10/25/18 14:10 [From Combigan] chlorpheniramine maleate Allergy Verified 10/25/18 14:10 [From Deconamine] ciprofloxacin [From Cipro] Allergy Verified 10/25/18 14:10 cyclobenzaprine HCl Allergy Verified 10/25/18 14:10 [From Flexeril] dicyclomine Allergy Verified 10/25/18 14:10 glimepiride [From Amaryl] Allergy Verified 10/25/18 14:10 metoclopramide HCl Allergy Verified 10/25/18 14:10 [From Reglan] Penicillins Allergy Verified 10/25/18 14:10 pregabalin [From Lyrica] Allergy Verified 10/25/18 14:10 prochlorperazine edisylate Allergy Verified 10/25/18 14:10 [From Compazine] pseudoephedrine HCl Allergy Verified 10/25/18 14:10 [From Deconamine] thiethylperazine maleate Allergy Verified 10/25/18 14:10 [From Torecan] timolol maleate Allergy Verified 10/25/18 14:10 [From Combigan] Home Medications: Ambulatory Orders Medication Instructions Recorded Allopurinol [Zyloprim] 300 mg PO D 06/04/16 Calcium Carb 500/Vit D 200 1 each PO TID 06/04/16 [CALTRATE WITH VIT D] Calcium Carb 500Mg [Tums] 1,000 mg PO DAILY PRN 06/04/16 Enoxaparin Sodium [Lovenox] 40 mg SQ QD 06/04/16 Gabapentin 600 mg PO TID 06/04/16 Levothyroxine Sodium [Levoxyl] 88 mcg PO 0700 06/04/16 Mv-Min/FA/Vit K/Lycop/Lut/Zeax 1 each PO D 06/04/16 [Ocuvite Eye Plus Multi Tablet] Omeprazole [Prilosec] 40 mg PO D 06/04/16 Raloxifene HCl 60 mg PO D 06/04/16 Sennosides/Docusate Sodium 2 each PO HS PRN 06/04/16 [Docusate Sodium-Senna Tablet] metFORMIN HCl [Glucophage] 1,[place] [address] 06/04/16 oxyCODONE HCL/ACETAMINOPHEN 2 each PO Q4 PRN 06/04/16 [Percocet 5-325 mg Tablet] Polyethylene Glycol 3350 [Miralax] 17 gm PO 1100 PRN #30 powd.pack 06/19/16 Zolpidem Tartrate [Ambien] 5 mg PO HS PRN #20 tablet 06/19/16 Propylene Glycol/Peg 400/Pf 2 drop OP BID 11/07/16 [Systane 0.3-0.4% Eye Drops] Calcium Carbonate/Vitamin D3 1 each PO TID tablet 11/25/16 [Calcium 500 + Vit D 200 Tablet] Baclofen [Liorasal] 1 tab PO TID 06/18/18 - SOCIAL HX Smoking History: non-smoker Alcohol Use: none Drug Use: none - FAMILY HX Family History: No - VITAL SIGNS Vital Signs: Vital Signs Temp Pulse Resp BP Pulse Ox 98.1 F 94 H 19 136/61 98 10/25/18 14:06 10/25/18 14:06 10/25/18 14:06 10/25/18 14:06 10/25/18 14:06 - REVIEWED ASSESSMENTS Nursing Assessment Reviewed: Yes Vitals Reviewed: Yes General Adult Physical Exam - PHYSICAL EXAM GENERAL APPEARANCE: no distress EENT: PEPITO NECK: supple RESPIRATORY: no resp distress, breath sounds normal CVS: reg rate & rhythm, heart sounds normal ABDOMEN: soft, normal bowel sounds BACK: other (mid-line incision at l3-l4, left low flank incision. Both well approximated with katia, no redness, no drainage. ) SKIN: warm/dry, normal color EXTREMITIES: non-tender, no edema NEURO: oriented X3, mood/affect nml Discharge Clincal Impression: Pain at surgical incision Referrals: Jennifer Lee, PRN [Primary Care Provider] - 2 Days Additional Instructions: 1. Tylenol 650mg every 4 hours and/or Ibuprofen 600mg every 6 hours as needed for pain 2. Wear SORAYA bandage with activity, remove with rest 3. Follow up with PCP within 1 week 4. Apply ICE to affected area as needed for comfort 5. Return to ER for new or worsening symptoms Condition: Stable Disposition: 01 HOME, SELF-CARE Decision to Admit: NO Date of Decison to Admit: 10/25/18 Decision Time: 14:26
[2018-10-25 14:14] VITALS: BP 136/61
[2018-10-25] MEDS: KETOROLAC TROMETHAMINE 30 MG/1ML VIAL ONE (14:28)
[2018-10-25] MEDS: KETOROLAC TROMETHAMINE 15 MG/ML VIAL IM ONE (14:28)
== END 2018-10-25 14:44 | disposition home or self-care (01) ==
LOC: ED 13:33
DX: G89.18 Other acute postprocedural pain (principal)
CPT/HCPCS: 99283; J1885

== ENCOUNTER 2018-11-30 06:30 | Outpatient (CLI) | payer OTHER ==
[2018-11-30 09:07] LABS: APPEARANCE,URINE CLEAR (CLEAR); COLOR,URINE YELLOW (YELLOW); OCCULT BLOOD,URINE NEGATIVE (NEGATIVE); UROBILINOGEN URINE 0.2 Eu (0.2-1.0)
[2018-11-30 09:08] LABS: A1C 5.7 % (<5.7)
[2018-11-30 09:09] LABS: BASOPHILS % 0.7 % (0.0-1.5)
[2018-11-30 09:25] LABS: eGFR (Non-African) > 60
[2018-11-30 09:27] LABS: HDL 77 mg/dL (>40)
== END 2018-11-30 06:35 ==
LOC: LAB 06:30
PROVIDERS: ATTEND Nurse Practitioner Family
DX: I10 Essential (primary) hypertension (principal); E03.4 Atrophy of thyroid (acquired); E11.65 Type 2 diabetes mellitus with hyperglycemia; E78.2 Mixed hyperlipidemia
CPT/HCPCS: 80053; 80061; 81002; 82043; 83036; 84443; 84550; 85025

== ENCOUNTER 2019-01-01 08:41 | Outpatient (CLI) | payer OTHER | END 2019-01-01 08:56 | disposition home or self-care (01) | LOC: OUT 08:41 | PROVIDERS: ATTEND Internal Medicine Hematology & Oncology | DX: C82.18 Follicular lymphoma grade II, lymph nodes of multiple sites (principal) | CPT/HCPCS: J1642 ==

== ENCOUNTER 2019-01-05 09:08 | Outpatient (CLI) | payer OTHER ==
[2019-01-05 09:27] LABS: BASOPHILS % 0.3 % (0.0-1.5); NEUTROPHILS # 1.9 # k/uL (1.4-7.7)
== END 2019-01-05 09:15 ==
LOC: LAB 09:08
PROVIDERS: ATTEND Nurse Practitioner Family
DX: R71.0 Precipitous drop in hematocrit (principal)
CPT/HCPCS: 36415; 85025

== ENCOUNTER 2019-01-11 15:24 | Outpatient (CLI) | payer OTHER ==
[2019-01-11 15:45] LABS: BASOPHILS % 0.4 % (0.0-1.5); NEUTROPHILS # 1.4 # k/uL (1.4-7.7)
== END 2019-01-11 15:29 ==
LOC: LAB 15:24
PROVIDERS: ATTEND Nurse Practitioner Family
DX: R71.0 Precipitous drop in hematocrit (principal)
CPT/HCPCS: 36415; 85025